=== PATIENT | male | born 1955 | race Caucasian/White ===

== ENCOUNTER 2018-06-08 14:01 | Emergency (ER) | payer SELFPAY ==
[~2018-06-08] VITALS: Ht 190.5 cm; Wt 97.5 kg
[~2018-06-08 14:01] MED LIST: ACET325 PO; GABA800 PO; INSDET100 SC; METCAR750 PO; METF500 PO; SIMV40 PO; TRAZ100 PO
== END 2018-06-08 14:30 ==
LOC: ER 14:01
DX: R60.0 Localized edema (principal); F10.129 Alcohol abuse with intoxication, unspecified; Z88.5 Allergy status to narcotic agent; Z88.8 Allergy status to other drugs, medicaments and biological substances; Z79.899 Other long term (current) drug therapy; Z79.4 Long term (current) use of insulin; F43.10 Post-traumatic stress disorder, unspecified; I50.9 Heart failure, unspecified; F17.200 Nicotine dependence, unspecified, uncomplicated
CPT/HCPCS: 99282

== ENCOUNTER 2019-03-02 17:02 | Inpatient (IN) | payer OTHER, MEDICARE ==
[~2019-03-02] VITALS: Ht 190.5 cm; Wt 88.1 kg
[~2019-03-02 17:02] MED LIST changes: -METCAR750 PO; +Robaxin-750750 MG PO
[2019-03-02 18:25] LABS: BASOPHILS ABSOLUTE AUTO 0.09 K/mm3 (0.00-0.23); BASOPHILS PERCENT AUTO 1 % (0-2); EOSINOPHILS ABSOLUTE AUTO 0.13 K/mm3 (0.00-0.68); EOSINOPHILS PERCENT AUTO 1 % (0-6); Hemoglobin 15.2 g/dL (13.5-17.5); IMMATURE GRAN ABSOLUTE AUTO 0.07 K/mm3 (0.00-0.10); IMMATURE GRAN PERCENT AUTO 1 % (0-1); LYMPHOCYTES ABSOLUTE AUTO 3.19 K/mm3 (0.84-5.20); LYMPHOCYTES PERCENT AUTO 30 % (21-46); MONOCYTES ABSOLUTE AUTO 0.93 K/mm3 (0.16-1.47); MONOCYTES PERCENT AUTO 9 % (4-13); Mean Corpuscular HGB 31.5 pg (26.0-34.0); Mean Corpuscular HGB Conc 33.8 g/dL (31.5-36.5); Mean Corpuscular Volume 93 fL (80-100); Mean Platelet Volume 9.3 fL (9.1-12.4); NEUTROPHILS ABSOLUTE AUTO 6.13 K/mm3 (1.96-9.15); NEUTROPHILS PERCENT AUTO 58 % (41-73); Platelet Count 491 K/mm3 (150-400); RDW Coefficient Variation 11.6 % (11.7-14.2); RDW Standard Deviation 39.9 fL (35.1-46.3); Red Blood Cell Count 4.82 M/mm3 (4.30-5.90); White Blood Cell Count 10.54 K/mm3 (4.00-11.30)
[2019-03-02 18:43] LABS: Alanine Aminotransfer (ALT/SGP 26 U/L (12-78); Albumin, Blood 3.2 g/dL (3.4-5.0); Albumin/Globulin Ratio 0.7 (0.8-1.8); Alk Phos 108 U/L (50-136); Anion Gap 7 mmol/L (6-16); Aspartate Aminotrans (AST/SGOT 12 U/L (12-37); Bilirubin, Total 0.2 mg/dL (0.1-1.0); Blood Urea Nitrogen 24 mg/dL (8-24); Bun/Creatinine Ratio 47.1 (12.0-20.0); CO2, Blood 29 mmol/L (21-32); Calcium, Blood 9.3 mg/dL (8.5-10.1); Chloride, Blood 92 mmol/L (98-108); Creatinine, Blood 0.51 mg/dL (0.60-1.20); Globulin, Blood 4.7 g/dL (2.2-4.0); Glomerular Filtration Rate >60 (60-); Glucose, Blood 493 mg/dL (70-99); Sodium, Blood 128 mmol/L (136-145); Total Protein, Blood 7.9 g/dL (6.4-8.2)
[2019-03-02 19:14] LABS: Glucose, Blood 462 mg/dL (70-99)
[2019-03-02] MEDS ORDERED: BUPR75 PO (21:22)
[2019-03-02] MEDS ORDERED: IBUP800 PO (21:22)
[2019-03-02] MEDS ORDERED: OMEPRAZOLE20 MG PO (21:22)
[2019-03-02] MEDS ORDERED: Norco 10-325 T1 EACH PO (23:11)
--- NOTE | 2019-03-03 12:57 | NUR ---
PT HAS BEEN A/O X 3-4, HIS SPEECH IS VERY GARBLED WITH C/O PAIN X 1 FOR WHICH TYLENOL WAS GIVEN ORDERED. PT IS VERY IMPULSVE AND HAS POOR SAFETY AWARENESS. THIS MORNING HE INSISTED ON GOING OUTSIDE TO SMOKE EVEN THOUGH HE WAS REMINDED THAT IT IS SAFEST FIR HIM TO STAY IN HIS ROOM AND REST. PT REFUSES TO USE CALL LIGHT EVEN THOUGH HE IS CAPABLE AND INSTEAD YELLS OUT FOR "NURSE" WHEN HE NEEDS SOMETHING. LEFT INDEX FINGER AND RIGHT FOOT ULCERS REMAIN NOTED IN SHIFT ASSESSMENT. ORTHO DOCTOR SAW PT AT THE BEDSIDE THIS MORNING AND STATED THAT THEY WOULD DO AN I/D OF HIS FINGER THIS AFTERNOON AND PT HAS BEEN NPO SINCE AFTER BREAKFAST. IV FLUIDS/ABO RAN ORDERED. CBG WAS ELEVATED BEFORE LUNCH, DR STEIN WAS NOTIFIED AND GAVE A VERBAL TO GO AHEAD AND GIVE THE SLIDING SCALE DOSE ORDERED. PT IS ASYMPTOMATIC OF HYPERGLYCEMIA. PT IS RESTING IN BED.
--- NOTE | 2019-03-03 16:04 | NUR ---
Spiritual care visit/advance directive education attempted. Upon receiving an admit referral for advance directive education, I visited patient. Patient stated that he had no interest in filling out an advance directive and that I could leave a form if I wanted to. I left a form for the patient. I also attempted to build rapport with patient but patient was not receptive so discussions about his life, his family and his spirituality were flat. I will continue to remain available.
--- NOTE | 2019-03-03 16:19 | NUR ---
THIS NURSE JUST NOTIFIED BY DAY SURGERY THAT PT WILL NOT HAVE PROCEDURE TONIGHT. HE CAN EAT DINNER AND THEN VE NPO AT MIDNIGHT
[2019-03-03 16:59] LABS: U Amphetamine Screen DETECTED; U Cannabinoids Screen DETECTED; U Methamphetamine Screen DETECTED
[2019-03-03 17:00] LABS: U Barbituate Screen Not Detected; U Benzodiazapine Screen Not Detected; U Buprenorphine Screen Not Detected; U Cocaine Screen Not Detected; U Methadone Screen Not Detected; U Opiates Screen DETECTED; U Oxycodone Screen Not Detected; U Phencyclidine Screen Not Detected; U Propoxyphene Screen Not Detected
--- NOTE | 2019-03-03 17:07 | NUR ---
SHIFT SUMMARY PT AXO TO SELF AND DATE THOUGH HAS BEEN VERY DROWSY SINCE THIS NURSE ASSUMED CARE AT 1300. UTOX COMPLETED, SEE LABS, PT POSITIVE FOR OPIATES, AMPHETAMINE, METHAMPHETAMINES AND CANNABINOIDS. CBG AT 1451 WAS 324, 10 UNITS OF INSULIN GIVEN PER DR STEIN. DAY SURGERY STATED TO THIS NURSE THAT OUR GOAL FOR CBG WAS BELOW 250. AT 1635 CBG WAS 230, MEDICATED PER SLIDING SCALE WITH DINNER. BED IN LOW POSITION, CALL LIGHT WITHIN REACH. PT DEMANDS TO GO OUTSIDE TO SMOKE DESPITE CESSATION EDUCATION. PT STATES THAT HE "ONLY SMOKES CIGARETTES" AND DENIES CANNABIS OR ILLICIT DRUG USE.
--- NOTE | 2019-03-04 06:11 | NUR ---
SHIFT SUMMARY: A/O X2-3. MAKES NEEDS KNOWN BY YELLING OUT "NURSE", DOES NOT USE CALL BUTTON DESPITE EXPLANATION OF IT'S USE. SPEECH IS MUMBLED AND DIFFICULT TO UNDERSTAND. CONT TO BE PAINFUL IN L INDEX FINGER. NORCO ADMINSTERED X1 TONIGHT. PT SLEPT FOR SEVERAL HOURS AFTER RECIEVING MED. HAS BEEN OUTSIDE TO SMOKE A COUPLE OF TIMES TONIGHT. PT SMELLS LIKE MARIJUANA. HAS BEEN MOSTLY COOPERATIVE. WOUND ON FOOT LEILA. PT BARES WT ON FOOT, PIVOT T/F TO WC. OCC PRODUCTIVE SOUNDING COUGH. CURRENTLY NPO IN PREPARATION FOR I&D OF L INDEX FINGER TODAY. CBG 321 AT HS. BED LOW, CALL BUTTON IN REACH.
[2019-03-04 11:49] LABS: Vancomycin, Trough 13.2 ug/mL (5.0-10.0)
--- NOTE | 2019-03-04 15:42 | NUR ---
patient in sds admission to unit started placed on lr fluids has iv fluid at tko rate patient cooperated with admission waiting for OR staff to round
--- NOTE | 2019-03-04 19:46 | NUR ---
SUMMARY PT WAS NPO @ ONSET OF SHIFT FOR I&D L INDEX FINGER. WENT OUT FOR SURG APPROX [address] FAYE GLORIA. ON ARRIVAL BACK TO ROOM @ 1730 ADA DINNER TRAY PROVIDED. NEW DRSG TO L HAND CDI @ THAT TIME. AFTER DINNER PT DEMAND TO GO OUT TO SMOKE, ATTEMPTS TO DISCOURAGE SMOKING UNSUCCESSFUL, HE WHEELED HIMSELF OUT USING L HAND. HIS FRIEND SHRUTHI CAME IN TO VISIT WHILE PT WAS OUT & WENT DOWN TO BRING HIM BACK TO ROOM AFTER APPROX 45 MIN. DRSG STILL INTACT, NOC RN WILL RE-ENFORCE. VSS. PT FRIEND STATE MANY CONCERNS R/T PT'S CONTINUING STREET DRUG USE, [employer] CONSULT PLACED.
--- NOTE | 2019-03-05 03:44 | NUR ---
PT NON COMPLIANT WITH DIETARY RESTRICTIONS. CONTINUES TO LEAVE FLOOR TO "SMOKE". IV ANTIBIOTICS INFUSING PER MAR - SEE MAR FOR DETAILS. WILL CONTINUE TO ENCOURAGE PT TO COMPLY WITH PLAN OF CARE. ISOLATION PRECAUTIONS MAINTAINED. CALL LIGHT IN REACH WHEN PT IN ROOM.
[2019-03-05 05:02] LABS: BASOPHILS ABSOLUTE AUTO 0.07 K/mm3 (0.00-0.23); BASOPHILS PERCENT AUTO 1 % (0-2); EOSINOPHILS ABSOLUTE AUTO 0.03 K/mm3 (0.00-0.68); EOSINOPHILS PERCENT AUTO 0 % (0-6); Hematocrit 41.5 % (37.0-53.0); IMMATURE GRAN ABSOLUTE AUTO 0.05 K/mm3 (0.00-0.10); IMMATURE GRAN PERCENT AUTO 1 % (0-1); LYMPHOCYTES PERCENT AUTO 20 % (21-46); MONOCYTES ABSOLUTE AUTO 0.75 K/mm3 (0.16-1.47); MONOCYTES PERCENT AUTO 7 % (4-13); Mean Corpuscular HGB 31.2 pg (26.0-34.0); Mean Corpuscular HGB Conc 33.7 g/dL (31.5-36.5); Mean Corpuscular Volume 92 fL (80-100); NEUTROPHILS ABSOLUTE AUTO 7.73 K/mm3 (1.96-9.15); NEUTROPHILS PERCENT AUTO 72 % (41-73); Platelet Count 402 K/mm3 (150-400); RDW Coefficient Variation 11.6 % (11.7-14.2); RDW Standard Deviation 39.1 fL (35.1-46.3); Red Blood Cell Count 4.49 M/mm3 (4.30-5.90); White Blood Cell Count 10.73 K/mm3 (4.00-11.30)
[2019-03-05 05:20] LABS: Anion Gap 7 mmol/L (6-16); Blood Urea Nitrogen 15 mg/dL (8-24); Bun/Creatinine Ratio 37.1 (12.0-20.0); CO2, Blood 24 mmol/L (21-32); Calcium, Blood 8.3 mg/dL (8.5-10.1); Chloride, Blood 99 mmol/L (98-108); Glomerular Filtration Rate >60 (60-); Glucose, Blood 267 mg/dL (70-99); Potassium, Blood 4.1 mmol/L (3.5-5.5); Sodium, Blood 130 mmol/L (136-145)
--- NOTE | 2019-03-05 10:41 | NUR ---
03/05/19 1041 Nataliya Pat VERIFICATIONS, AUDITS.
[2019-03-05 12:00] LABS: Vancomycin, Trough 15.8 ug/mL (5.0-10.0)
--- NOTE | 2019-03-05 17:38 | NUR ---
PATIENT IS ALERT AND ORIENTED AND COOPERATIVE WITH CARE. THE DRESSING ON HIS LEFT FINGER WAS CHANGED TODAY. ULCER ON RIGHT FOOT IS OPEN TO AIR. BLOOD SUGAR CHECKS ACHS. WAITING FOR TISSUE CULTURES TO COME BACK. PATIENT USES THE URINAL. HE GOES OUTSIDE IN HIS WHEELCHAIR TO SMOKE. WILL CONTINUE TO MONITOR.
--- NOTE | 2019-03-06 05:16 | NUR ---
Shift Summary Patient slept intermittently overnight. He left the room several times to go outside despite encouragement to stay inside, and doctor's recommendations. He has not had any food or beverage since midnight in anticipation of potential surgery.
--- NOTE | 2019-03-06 13:25 | NUR ---
BROUGHT TO [facility]IA GURNEY FROM MEDICAL FLOOR. History, Chart, Medications and Allergies reviewed before start of procedure.Patient confirms NPO status and agrees with scheduled surgery.Lungs clear T/O to Auscultation.
--- NOTE | 2019-03-06 13:34 | NUR ---
DAY SURGERY PT STABLE TRANSPORTED BY [facility] TO DAY SURGERY@ 1300. VANCOMYCIN NOT GIVEN ON FLOOR IV INFILTERATED, DAY SURGERY STARTING NEW
--- NOTE | 2019-03-06 15:37 | NUR ---
REPORT RECIEVED FROM LIZETH DOWLING RN, AT 1535. PATIENT TO BE RETURNING TO ROOM 312 S/P I&D OF LEFT INDEX FINGER. ROXANA DRESSING PLACED TO SITE, PER REPORT.
--- NOTE | 2019-03-06 16:23 | NUR ---
PT BACK FROM PACU PT TRANSPORTED FROM PACU AFTER I&D PROCEDURE OF LEFT FOREFINGER, DRESSING CLEAN DRY AND INTACT, WOUND VAC IN PLACE. PT WAS NPO UNTIL DINNER AND TOLORATED FOOD WELL.
[2019-03-06 21:19] LABS: Glucose, Blood 434 mg/dL (70-99)
--- NOTE | 2019-03-07 00:20 | NUR ---
PHYSICIAN COMMUNICATION CALLED AC/DC REWINDER PHYSICIAN AT 2154 ON 03/06 TO INFORM HER THAT THE PATIENT'S BLOOD SUGAR WAS 434 CONFIRMED BY LAB DUE TO THE CHEM BG MACHING READING BEING OVER 500. TOLD HER THAT THE PATIENT WILL BE NPO AFTER MIDNIGHT FOR A POSSIBLE PROCEDURE IN THE AM AND THAT HIS EVENING COVERAGE IS LANTUS. ELLA ORDERED 10 UNITS OF HUMALOG TO BE GIVEN AT THAT TIME ALONG WITH HIS SCHEDULED LANTUS.
--- NOTE | 2019-03-07 05:12 | NUR ---
DR ARIAS CALLED AT 2009 ON 03/06 TO NOTIFY ME THAT THE PATIENT WAS TO BE PLACED ON NPO SATUS AFTER MIDNIGHT DUE TO A POSSIBLE SURGICAL PROCEDURE IN THE MORNING.
--- NOTE | 2019-03-07 07:13 | NUR ---
SHIFT SUMMARY PATIENT WAS MOVED FROM 112 TO 113 TO REDUCE THE AMOUNT OF STIMULATION HE EXPERIENCED SO HE COULD GET BETTER REST. PATIENT DID NOT GET MUCH SLEEP OVERNIGHT. WOUND VAC PRESENT AND IN PLACE ON HIS LEFT INDEX FINGER. IV PATENT AND INFUSING. PATIENT PLACED ON NPO STATUS AFTER MIDNIGHT PER DR ARIAS'S ORDER. BED IN LOWEST POSITION WITH WHEELS LOCKED AND ALARM ON. CALL LIGHT WITHIN REACH. REPORT GIVEN TO ONCOMING RN.
[2019-03-07 11:18] LABS: Creatinine, Blood 0.44 mg/dL (0.60-1.20); Vancomycin, Trough 15.4 ug/mL (5.0-10.0)
--- NOTE | 2019-03-07 19:18 | NUR ---
SHIFT SUMMARY: NO ACUTE CHANGES TO REPORT THIS SHIFT. PT A&O; IRRITABLE; COOPERATIVE WITH CARE. MEDICATED FOR L INDEX FINGER PAIN PER EMAR. WOUND VAC TO L INDEX FINGER; PT TAKES WITH HIM IN WHEELCHAIR OUTSIDE TO SMOKE. FINGER SURGERY DELAYED UNTIL POC GLUCOSE BETTER CONTROLLED; PT EDUCATED ON BETTER MEAL CHOICES TO MAKE A DIABETIC; BETTER GLUCOSE CONTROL THROUGH DAY. FLUIDS & IV ABX CONTINUING. REPORT GIVEN TO ONCOMING RN.
--- NOTE | 2019-03-08 04:57 | NUR ---
SHIFT SUMMARY: BP ELEVATED 149/100. PT RESTING QUIETLY. HAS BEEN VOIDING FREQUENT LARGE AMOUNTS TONIGHT. URINE CLEAR, NONMALODOROUS. MOOD CONTINUES TO BE IRRITABLE WITH OCCASIONAL BOUTS OF YELLING AND SWEARING FOLLOWED BY APOLOGIES FOR BEHAVIOR. NORCO ADMINISTERED X1 TONIGHT FOR L INDEX FINGER PAIN. WOUND VAC ON AND SUCTIONING L INDEX FINGER ABSCESS. MINIMAL YELLOW/BROWN COLORED DISCHARGE OBSERVED IN TUBING. ULCER ON PLANTAR SURFACE OF R FOOT CLEANSED, PAT DRY, AND DRESSED WITH BORDERED MEPILEX. NO DRAINAGE. WOUND BED DRY AND CALLOUSED. CBG 173 AT HS. REQUESTS SNACKS OFTEN DURING THE NIGHT, WORKED TO REDIRECT PT TO CHOOSE LOWER CARB OPTIONS. SLEPT INTERMITTENTLY THROUGH THE NIGHT.
--- NOTE | 2019-03-08 14:58 | NUR ---
DR WILLIS IN TO SEE PT. NOTIFIED NURSE THAT PT WILL HAVE SURGERY ON Sunday03/10/19 AND THAT PT CAN EAT TODAY.
--- NOTE | 2019-03-08 18:00 | NUR ---
SHIFT SUMMARY PT AXO, EXTREMELY IRRITABLE FOR FIRST HALF OF SHIFT THEN WAS APOLOGETIC THE SECOND HALF OF SHIFT. MEDICATED FOR PAIN PER EMAR. THIS NURSE CALLED DR WILLIS ANSWERING SERVICE THIS MORNING AT ABOUT [address] MCHUGH. DR ARIAS CALLED AND WOUND VAC ORDERS RECIEVED. DR WILLIS CONSULTED, SEE NOTE. PT KEPT NPO FOR BREAKFAST AND LUNCH AWAITING DR WILLIS CONSULT. PT WILL NEED TO BE NPO AT MIDNIGHT ON 03/10/19 FOR AMPUTATION ON SUNDAY PER DR WILLIS. BED IN LOW POSITION, CALL LIGHT WITHIN REACH.
[2019-03-09 05:42] LABS: Albumin, Blood 2.5 g/dL (3.4-5.0); Anion Gap 6 mmol/L (6-16); Blood Urea Nitrogen 20 mg/dL (8-24); Bun/Creatinine Ratio 43.5 (12.0-20.0); CO2, Blood 27 mmol/L (21-32); Calcium, Blood 8.5 mg/dL (8.5-10.1); Chloride, Blood 100 mmol/L (98-108); Creatinine, Blood 0.46 mg/dL (0.60-1.20); Glomerular Filtration Rate >60 (60-); Glucose, Blood 217 mg/dL (70-99); Phosphorus, Blood 3.5 mg/dL (2.5-4.9); Potassium, Blood 4.4 mmol/L (3.5-5.5); Sodium, Blood 133 mmol/L (136-145)
--- NOTE | 2019-03-09 06:44 | NUR ---
ATTEMPTED PG, NOT SUCCESSFUL. WILL LET PRIMARY RN KNOW AND THERE SHOULD BE A HEAD OF STORE OPERATIONS ON DAYS THAT CAN ALSO ATTEMPT A POWER GLIDE.
--- NOTE | 2019-03-09 07:22 | NUR ---
SHIFT SUMMARY: AWAKE MUCH OF THE NIGHT. WOUND VAC IN PLACE ON L INDEX FINGER, SUCTIONING CONTINUOUSLY. DRSG TO PLANTAR SURFACE OF R FOOT C/D/I. ASKS FOR SNACKS FROM EVERYONE WHO ENTERS PT'S ROOM. CONT TO OFFER LOW CARB OPTIONS MUCH POSSIBLE. NO IV ACCESS AT THIS TIME. PT HAS NOT RECEIVED AM VANCO. MAKES NEEDS KNOWN BY BOTH USING CALL BUTTON AND YELLING OUT. LEFT 4 TIMES TO SMOKE DURING THE NOC. BED LOW, CALL BUTTON IN REACH.
--- NOTE | 2019-03-09 13:22 | NUR ---
Behavior plan reviewed behavior plan with patient. He refuses to sign. copy left in room.
[2019-03-09 13:42] LABS: U Amphetamine Screen Not Detected; U Barbituate Screen Not Detected; U Benzodiazapine Screen Not Detected; U Buprenorphine Screen Not Detected; U Cannabinoids Screen Not Detected; U Cocaine Screen Not Detected; U Methadone Screen Not Detected; U Methamphetamine Screen Not Detected; U Opiates Screen DETECTED; U Oxycodone Screen Not Detected; U Phencyclidine Screen Not Detected; U Propoxyphene Screen Not Detected
--- NOTE | 2019-03-09 18:39 | NUR ---
SHIFT SUMMARY PT AXO, IRRITABLE AND ANGRY THROUGHOUT THE DAY. PT UPSET THAT HE ISNT RECEIVING TWO TRAYS AT EACH MEAL, DIABETES EDUCATION DISCUSSED. PT THEN TOLD NURSE TO "ROLL HIM A JOINT" AND POINTED AT HIS COAT POCKET. NURSE QUESTIONED PATIENT ABOUT DRUG USE WHEN HE GOES OUTSIDE TO SMOKE. PT DENIES DRUG USE. PT DEMANDING TO GO OUTSIDE TO SMOKE VIA WHEELCHAIR X4 BEFORE NOON. NURSE SET LIMITS ON OUTSIDE PRIVILEGES R/T INTERFERRING WITH WOUND VAC CARE. PT OPPOSITIONAL TO LIMITS BEING SET. NURSING HOUSE SUPERINTENDENT, THEODORE BARRETT NOTIFIED AND BEHAVIORAL PLAN IN PLACE. DR MCHUGH NOTIFIED AND UTOX ORDERED, SEE LAB. AT 1445 PT DEMANDED TO LEAVE AMA. RISKS DISCUSSED WITH PATIENT WHO MADE A COMMENT ABOUT SELF HARM. DR MCHUGH IN ROOM SHORTLY AFTER FOR AN ASSESSMENT AT WHICH POINT PATIENT DENIED THAT STATEMENT. PT AGREES TO STAY FOR NOW. NEW IV PLACED THIS SHIFT. PT MEDICATED FOR PAIN PER EMAR. SMOKING AND DRUG CESSATION DISCUSSED. PHARMACY NOTIFIED OF IV ACCESS BEING LOST THIS MORNING AND ANTIBIOTICS RETIMED ONCE IV ACCESS REGAINED. BED IN LOW POSITION, CALL LIGHT WITHIN REACH. PATIENT VOIDED 3125 ML SO FAR THIS SHIFT.
--- NOTE | 2019-03-10 05:59 | NUR ---
SHIFT SUMMARY: A/O AT BASELINE. USING CALL BUTTON OCCASIONALLY BUT YELLS OUT AND SWEARS LOUDLY SHORTLY AFTER USING CALL LIGHT. L UPPER ARM SWELLING DUE TO IV INFILTRATION. POWERGLIDE NOW IN R UPPER ARM. PT WENT OUTSIDE X 3 TONIGHT. HAS REMAINED COMPLIANT WITH NPO AFTER MIDNIGHT GUIDELINES AT LEAST WHILE ON THE MEDICAL FLOOR UNIT. SLEPT INTERMITTENTLY THROUGH THE NIGHT. CALL BUTTON PLACED WITHIN REACH. BED LOW.
--- NOTE | 2019-03-10 12:37 | NUR ---
PATIENT IV FLUIDS AND WOUND VAC DISCONNECTED. PATIENT LEFT UNIT ON BED FOR SURGERY.
--- NOTE | 2019-03-10 13:07 | NUR ---
History, Chart, Medications and Allergies reviewed before start of procedure. Lungs clear T/O to Auscultation. Patient confirms NPO status and agrees with scheduled surgery. Pre-Op teaching done. Pt verbalizes understanding.
[2019-03-10 13:56] LABS: Vancomycin, Trough 15.1 ug/mL (5.0-10.0)
--- NOTE | 2019-03-10 15:44 | NUR ---
PATIENT RETURNED FROM DAY SURGERY. VSS. PATIENT A/O. COMPLAINTS OF PAIN PHYSICALLY. WILL MEDICATE PER EMAR.
--- NOTE | 2019-03-10 16:59 | NUR ---
SHIFT SUMMARY PT HAD L POINTER FINGER REMOVED TODAY. DRESSING INTACT. NO HEMATOMA OR BLEEDING OBSERVED. WOUND VAC REMOVED DUE TO FINGER AMPUTATION. PT OUT TO SMOKE THROUGHOUT SHIFT. PT UNINTERESTED IN EDUCATION ON SMOKING CESSATION. PT BACK TO ADA DIET. NO OTHER CHANGES IN ASSESSMENT AT THIS TIME. VSS. WILL CONTINUE TO MONITOR UNTIL TURNOVER IS COMPLETE.
--- NOTE | 2019-03-11 07:18 | NUR ---
SHIFT SUMMARY PT C/O PAIN IN L HAND AND MEDICATED PER EMAR. HE WAS ABLE TO SLEEP ON AND OFF T/O NIGHT. WENT OUTSIDE IN W/C 3-4 TIMES. ASKS FOR MULTIPLE SNACK FOODS.
--- NOTE | 2019-03-11 14:54 | NUR ---
LATE ENTRY D/C ORTHO INSTRUCTIONS. CONTACT WITH PROVIDER REGARDING D/C SPOKE WITH DR. ARIAS AND REPORTS OKAY TO D/C ON PO ANTIBX FOR ONE WEEK POST SURGERY. WOUND CARE INSTRUCTIONS TO LEAVE DRESSING CDI UNTIL F/U WITH DR. ARIAS Sunday03/14/19, NO LIFTING, NO DRIVING, NO SMOKING/DRUGS. REPORTS OKAY TO D/C PATIENT IF THESE INSTRUCTIONS FOLLOWED.
--- NOTE | 2019-03-11 14:57 | NUR ---
POST SURG SWELLING OF ARM PATIENT COMPLAINS OF PAIN IN LEFT ARM AT ELBOW WITH RADIATION UP TOWARDS SHOULDER AND DOWN TOWARDS HAND. WARM TO TOUCH, NO NUMBNESS, TINGLING REPORTED AT THIS TIME. MEASUREMENTS OF ARM AT WRIST 7 CM AROUND, AT FOREARM 13 CM AND AT ELBOW 14 CM. ARM APPEARS MORE SWOLLEN THAN DURING ASSESSMENT THIS AM. NO OBVIOUS INJURIES OBSERVED. DR. MCHUGH AND DR. ARIAS AWARE AND ULTRASOUND TO BE COMPLETED. WILL CONTINUE TO MONITOR.
--- NOTE | 2019-03-11 16:05 | NUR ---
PT OUT OF ROOM. PT OUT OF ROOM FOR EXTENDED PERIOD OF TIME. PT OVERHEAD PAGED. SECURITY CALLED. PT IN SMOKING AREA. SECURITY TO ASK PT TO RETURN TO ROOM.
--- NOTE | 2019-03-11 17:52 | NUR ---
SHIFT SUMMARY PATIENT A/O X 4. MAKES NEEDS KNOWN. LEFT FINGER DRESSING IS CDI WITH SOME DRY BLOOD DRAINAGE NOTED. THERE IS SOME SWELLING OF THE LEFT ARM NOTED FROM THE WRIST TO JUST ABOVE ELBOW WARM TO TOUCH AND PAINFUL TO PATIENT. ULTRASOUND COMPLETED AND REPORTED NO CLOTS FOUND AT THIS TIME. ARM APPEARS REDDENED AND WARM TO TOUCH AND NO CHANGES IN SIZE NOTED AT THIS TIME AT REMEASURE. PATIENT MAKES NEEDS KNOWN. ADVISED PATIENT MAY NOT LEAVE THE ROOM FOR LONGER THAN ONE HOUR AT A TIME PATIENT WAS AWAY FROM ROOM FOR AN EXTENDED PERIOD BEYOND ONE HOUR DURING SHIFT. WILL CONTINUE TO MONITOR UNTIL SHIFT CHANGE COMPLETE.
--- NOTE | 2019-03-12 16:52 | NUR ---
SHIFT SUMMARY PT AWAKE AT START OF SHIFT AND THRU OUT MOST OF THE DAY. OUT TO SMOKE PRIOR TO DAY SHIFT REPORT AND DIDN'T RETURN UNTIL ABX WAS OVERDUE. INSTRUCTED PT TO REMAIN IN RM FOR IV ABX AND EDU PT ON DR BLEVINS ORDERS THAT PT NOT BE SMOKING. PT THEN REMAINED IN RM FOR SEVERAL HOURS, BEFORE GOING OUT AGAIN. PT HAD SEVERAL FRIENDS IN AND OUT OF RM TODAY. L ARM SWELLING NOTED AT START OF SHIFT; ASSISTED PT IN ELEVATING ON 2 PILLOWS. ENCOURAGED PT TO KEEP IT ELEVATED WHEN AT REST. DR MCHUGH IN EARLY TO SEE PT AND GAVE ORDERS TO CALL DR COMBS TO COME AND ASSESS PT'S ARM SWELLING. DR COMBS NOTIFIED. REVIEWED US RESULTS; SEE CHART, AND THEN REPORTED THAT HE WOULD SEE PT TODAY. SOME SWELLING CAN BE NORMAL D/T PROCEDURE DONE ON LH. PT WAS HOPING TO D/C TODAY, BUT WAITING FOR ORTHO TO CLEAR PT FOR D/C. PT BECAME DEMANDING AND RUDE AT TIMES TODAY, BUT THEN APPOLOGIZED AND IMPROVED SOME. OUT SIDE A FEW TIMES BETWEEN IV ABX, BUT RETURNED MUCH SOONER THAN YESTERDAY OR LAST NIGHT. DIABETIC FOOT ULCER ON BOTTOM OF R FOOT. PT REPORTED THAT HE DOES NOT KNOW HOW HE GOT IT. ATTEMPTED TO EDU PT ON DIABETIC FOOT CARE, BUT PT IS DIFFICULT TO EDUCATE; VERY NONCOMPLIANT WITH DIET, INSULIN, AND CARE. CALL LT IN REACH. ABLE TO MAKE NEEDS KNOWN.
--- NOTE | 2019-03-13 04:28 | NUR ---
SHIFT SUMMARY ADMIT FOR FINGER ABSCESS, AMPUTATION PERFORMED. DR ARIAS ROUNDED LAST NIGHT AND CHANGED DRESSING, ASSESSED HEALING. HE WOULD LIKE THE PT TO GET A SLING AND FOLLOW UP AT HIS OFFICE OUTPATIENT SUNDAY OR SUNDAY. CONTACT PRECAUTIONS MRSA HX - PER PT. HX: SMOKING, DRUG USE. PLAN IS FOR DC (POSSIBLY TODAY) AND HOPEFUL FOR ENROLLMENT IN THE [facility]. PT'S [place] HELPS HIM AT HOME. FULL CODE. RA.
[2019-03-13 05:48] LABS: Vancomycin, Trough 14.8 ug/mL (5.0-10.0)
[2019-03-13] MEDS ORDERED: BASAGLAR K100 UNIT/1 SC (09:07)
[2019-03-13] MEDS ORDERED: Humalog100 UNIT/3 SC (09:18)
[2019-03-13] MEDS ORDERED: Vsl#3 Capsule1 EACH PO (09:21)
[2019-03-13] MEDS ORDERED: BACTRIM DS TAB1 EACH PO (09:22)
--- NOTE | 2019-03-13 11:15 | NUR ---
DISCHARGE INSTRUCTIONS REVIEWED WITH PT. POWERGLIDE DC'D INTACT. DRESSING TO LEFT HAND C/D/I, DR ARIAS IN TO SEE PT PRIOR TO DISCHARGE AND TORSTEN WRAP APPLIED TO FORARM DUE TO PAIN. EXTRA DRESSING SUPPLES GIVEN TO PT. APPT MADE WITH DR ARIAS FOR TOMORROW AM, BREWER HELPER WORKING ON GETTING [facility] TO APPT WELL PT TALKING WITH [facility] FOR TRANSPORTATION. F/U APPT MADE WITH PCP AND PT TO CALL DR RAIN FOR PODIATRY APPT HIS OFFICE IS CLOSED. PT REPORTS HE USES INSULIN AT HOME AND AWARE HOW TO ADMINISTER AND CHECK BLOOD GLCUOSE, SLIDING SCALE GIVEN. MEDS FAXED TO [place] AND ARE READY FOR CREAM BUYER. [employer] [facility] TO STOP BY [facility] FOR MEDS AND THEN HOME. HARD SCRIPT FOR PAIN MEDS AND W/C GIVEN TO PT. INSTRUCTIONS TO NOT DRIVE, ELEVATE ARM, NO SMOKING AND NO DRUGS GIVEN TO PT. SLING APPLIED TO LEFT ARM PRIOR TO DISCHARGE. PT DISCHARGED HOME AT 1112 VIA [employer] [facility] W/C TRANSPORT AT 1112.
== END 2019-03-13 11:11 | disposition home health service (06) | DRG 580 ==
LOC: ER 17:02 → MEDS 17:03
PROVIDERS: Family Medicine; Hospitalist; Orthopaedic Surgery; Pharmacist; Physician Assistant; ADMIT Hospitalist
PROC: 0JDK0ZZ Extraction of Left Hand Subcutaneous Tissue and Fascia, Open Approach (ICD-10-PCS; principal; 2019-03-04 15:30)
PROC: 0JDK0ZZ Extraction of Left Hand Subcutaneous Tissue and Fascia, Open Approach (ICD-10-PCS; 2019-03-06)
PROC: 0X6P0Z0 Detachment at Left Index Finger, Complete, Open Approach (ICD-10-PCS; 2019-03-10)
DX: L02.512 Cutaneous abscess of left hand (principal); M02.30 Reiter's disease, unspecified site; M00.9 Pyogenic arthritis, unspecified; E87.1 Hypo-osmolality and hyponatremia; R45.851 Suicidal ideations; L97.412 Non-pressure chronic ulcer of right heel and midfoot with fat layer exposed; B19.20 Unspecified viral hepatitis C without hepatic coma; F43.10 Post-traumatic stress disorder, unspecified; Z79.4 Long term (current) use of insulin; E11.65 Type 2 diabetes mellitus with hyperglycemia; F15.10 Other stimulant abuse, uncomplicated; E11.621 Type 2 diabetes mellitus with foot ulcer; L03.012 Cellulitis of left finger; F32.9 Major depressive disorder, single episode, unspecified; K21.9 Gastro-esophageal reflux disease without esophagitis; F60.9 Personality disorder, unspecified
CPT/HCPCS: 10160; 36415; 73140; 73620; 80048; 80053; 80069; 80202; 82565; 82947; 83605; 85025; 85730; 87040; 87070; 87071; 87075; 87077; 87147; 87186; 87205; 88305; 88311; 93005; 93010; 93971; 96361-59; 96365-59; 96366-59; 96374; 96375; 96376; 99284-25; A9270; A9270-GY; G0378; J0171; J0330; J0696; J1100; J1815; J2250; J2370; J2405; J2704; J2710; J3010; J3370; J7030; J7050; J7120

== ENCOUNTER 2019-03-27 13:36 | Emergency (ER) | payer OTHER ==
[~2019-03-27] VITALS: Ht 190.5 cm; Wt 99.8 kg
[~2019-03-27 13:36] MED LIST changes: +BACTRIM DS TAB1 EACH PO; +BASAGLAR K100 UNIT/1 SC; +BUPR75 PO; +Humalog100 UNIT/3 SC; +IBUP800 PO; +Norco 10-325 T1 EACH PO; +OMEPRAZOLE20 MG PO; +Vsl#3 Capsule1 EACH PO
[2019-03-27 15:51] LABS: BASOPHILS ABSOLUTE AUTO 0.04 K/mm3 (0.00-0.23); BASOPHILS PERCENT AUTO 1 % (0-2); EOSINOPHILS ABSOLUTE AUTO 0.18 K/mm3 (0.00-0.68); EOSINOPHILS PERCENT AUTO 2 % (0-6); Hematocrit 40.4 % (37.0-53.0); Hemoglobin 13.4 g/dL (13.5-17.5); IMMATURE GRAN ABSOLUTE AUTO 0.02 K/mm3 (0.00-0.10); IMMATURE GRAN PERCENT AUTO 0 % (0-1); LYMPHOCYTES ABSOLUTE AUTO 1.53 K/mm3 (0.84-5.20); LYMPHOCYTES PERCENT AUTO 19 % (21-46); MONOCYTES ABSOLUTE AUTO 0.65 K/mm3 (0.16-1.47); MONOCYTES PERCENT AUTO 8 % (4-13); Mean Corpuscular HGB 31.6 pg (26.0-34.0); Mean Corpuscular HGB Conc 33.2 g/dL (31.5-36.5); Mean Corpuscular Volume 95 fL (80-100); Mean Platelet Volume 9.2 fL (9.1-12.4); NEUTROPHILS ABSOLUTE AUTO 5.62 K/mm3 (1.96-9.15); NEUTROPHILS PERCENT AUTO 70 % (41-73); Platelet Count 252 K/mm3 (150-400); RDW Coefficient Variation 12.7 % (11.7-14.2); RDW Standard Deviation 44.2 fL (35.1-46.3); Red Blood Cell Count 4.24 M/mm3 (4.30-5.90); White Blood Cell Count 8.04 K/mm3 (4.00-11.30)
[2019-03-27 16:14] LABS: Alanine Aminotransfer (ALT/SGP 23 U/L (12-78); Albumin, Blood 2.9 g/dL (3.4-5.0); Albumin/Globulin Ratio 0.7 (0.8-1.8); Alk Phos 68 U/L (50-136); Anion Gap 8 mmol/L (6-16); Aspartate Aminotrans (AST/SGOT 18 U/L (12-37); Bilirubin, Total 0.2 mg/dL (0.1-1.0); Blood Urea Nitrogen 17 mg/dL (8-24); Bun/Creatinine Ratio 33.3 (12.0-20.0); CO2, Blood 26 mmol/L (21-32); Calcium, Blood 8.9 mg/dL (8.5-10.1); Chloride, Blood 101 mmol/L (98-108); Creatinine, Blood 0.51 mg/dL (0.60-1.20); Globulin, Blood 3.9 g/dL (2.2-4.0); Glomerular Filtration Rate >60 (60-); Glucose, Blood 231 mg/dL (70-99); Potassium, Blood 3.9 mmol/L (3.5-5.5); Sodium, Blood 135 mmol/L (136-145); Total Protein, Blood 6.8 g/dL (6.4-8.2)
[2019-03-27] MEDS ORDERED: Dyazide 37.5-21 EACH PO (16:46)
== END 2019-03-27 16:56 | disposition home or self-care (01) ==
LOC: ER 13:36
PROVIDERS: Physician Assistant
DX: R60.0 Localized edema (principal); E11.621 Type 2 diabetes mellitus with foot ulcer; L97.519 Non-pressure chronic ulcer of other part of right foot with unspecified severity; F32.9 Major depressive disorder, single episode, unspecified; F43.10 Post-traumatic stress disorder, unspecified; F17.200 Nicotine dependence, unspecified, uncomplicated; Z86.19 Personal history of other infectious and parasitic diseases
CPT/HCPCS: 36415; 71046; 80053; 83880; 85025; 93005; 93010; 99284-25

== ENCOUNTER 2019-09-24 20:40 | Inpatient (IN) | payer OTHER ==
[~2019-09-24] VITALS: Ht 190.5 cm; Wt 109.3 kg
[~2019-09-24 20:40] MED LIST changes: +Dyazide 37.5-21 EACH PO; -Humalog100 UNIT/3 SC; +NOVOLOG FL100 UNIT/3 SC
[2019-09-24 21:45] LABS: BASOPHILS ABSOLUTE AUTO 0.03 K/mm3 (0.00-0.23); BASOPHILS PERCENT AUTO 0 % (0-2); EOSINOPHILS ABSOLUTE AUTO 0.02 K/mm3 (0.00-0.68); EOSINOPHILS PERCENT AUTO 0 % (0-6); Hematocrit 46.2 % (37.0-53.0); IMMATURE GRAN ABSOLUTE AUTO 0.03 K/mm3 (0.00-0.10); IMMATURE GRAN PERCENT AUTO 0 % (0-1); LYMPHOCYTES ABSOLUTE AUTO 1.12 K/mm3 (0.84-5.20); LYMPHOCYTES PERCENT AUTO 12 % (21-46); MONOCYTES ABSOLUTE AUTO 0.61 K/mm3 (0.16-1.47); MONOCYTES PERCENT AUTO 7 % (4-13); Mean Corpuscular HGB 31.4 pg (26.0-34.0); Mean Corpuscular HGB Conc 32.5 g/dL (31.5-36.5); Mean Corpuscular Volume 97 fL (80-100); Mean Platelet Volume 9.6 fL (9.1-12.4); NEUTROPHILS ABSOLUTE AUTO 7.54 K/mm3 (1.96-9.15); NEUTROPHILS PERCENT AUTO 81 % (41-73); Platelet Count 279 K/mm3 (150-400); RDW Coefficient Variation 12.3 % (11.7-14.2); RDW Standard Deviation 44.3 fL (35.1-46.3); Red Blood Cell Count 4.78 M/mm3 (4.30-5.90); White Blood Cell Count 9.35 K/mm3 (4.00-11.30)
[2019-09-24 22:05] LABS: Alanine Aminotransfer (ALT/SGP 57 U/L (12-78); Albumin, Blood 2.7 g/dL (3.4-5.0); Albumin/Globulin Ratio 0.8 (0.8-1.8); Alk Phos 74 U/L (50-136); Anion Gap 8 mmol/L (6-16); Aspartate Aminotrans (AST/SGOT 32 U/L (12-37); Bilirubin, Total 0.5 mg/dL (0.1-1.0); Blood Urea Nitrogen 16 mg/dL (8-24); Bun/Creatinine Ratio 27.5 (12.0-20.0); CO2, Blood 27 mmol/L (21-32); Calcium, Blood 8.5 mg/dL (8.5-10.1); Chloride, Blood 97 mmol/L (98-108); Creatinine, Blood 0.58 mg/dL (0.60-1.20); Globulin, Blood 3.5 g/dL (2.2-4.0); Glomerular Filtration Rate >60 (60-); Glucose, Blood 453 mg/dL (70-99); Potassium, Blood 4.9 mmol/L (3.5-5.5); Sodium, Blood 132 mmol/L (136-145); Total Protein, Blood 6.2 g/dL (6.4-8.2); Troponin I 0.019 ng/mL (0.000-0.040)
[2019-09-24 23:15] LABS: Source, Urine Clean Catch
[2019-09-24 23:19] LABS: Magnesium, Blood 1.8 mg/dL (1.6-2.4)
[2019-09-24 23:24] LABS: Appearance, Urine Clear (Clear); Bilirubin, Urine Neg (Neg); Blood, Urine 1+ (Neg); Color, Urine Yellow (P-Yellow); Glucose Qualitative, Urine 4+ (Neg); Ketones, Urine 1+ (Neg); Leukocyte Esterase, Urine Neg (Neg); Nitrite, Urine Neg (Neg); Protein, Urine 3+ (Neg); Urobilinogen, Urine NORM (Normal)
[2019-09-24 23:25] LABS: Bacteria Not Seen /hpf; Red Blood Cells, Urine 0-2 /hpf (0-2); Squamous Epithelial Cells Not Seen /hpf (Few); White Blood Cells, Urine Not Seen /hpf (0-5)
[2019-09-24 23:28] LABS: U Amphetamine Screen DETECTED; U Barbituate Screen Not Detected; U Benzodiazapine Screen Not Detected; U Buprenorphine Screen Not Detected; U Cannabinoids Screen Not Detected; U Cocaine Screen Not Detected; U Methadone Screen Not Detected; U Methamphetamine Screen DETECTED; U Opiates Screen DETECTED; U Oxycodone Screen DETECTED; U Phencyclidine Screen Not Detected; U Propoxyphene Screen Not Detected
[2019-09-24] MEDS ORDERED: IBUP800 PO (23:54)
[2019-09-24] MEDS ORDERED: ZINC220 PO (23:56)
[2019-09-25] MEDS ORDERED: C-500500 MG PO (01:41)
[2019-09-25] MEDS ORDERED: CAMPHOR TP (01:43)
[2019-09-25 05:28] LABS: BASOPHILS ABSOLUTE AUTO 0.04 K/mm3 (0.00-0.23); BASOPHILS PERCENT AUTO 0 % (0-2); EOSINOPHILS ABSOLUTE AUTO 0.02 K/mm3 (0.00-0.68); EOSINOPHILS PERCENT AUTO 0 % (0-6); Hematocrit 46.8 % (37.0-53.0); IMMATURE GRAN ABSOLUTE AUTO 0.02 K/mm3 (0.00-0.10); IMMATURE GRAN PERCENT AUTO 0 % (0-1); LYMPHOCYTES ABSOLUTE AUTO 1.23 K/mm3 (0.84-5.20); LYMPHOCYTES PERCENT AUTO 12 % (21-46); MONOCYTES ABSOLUTE AUTO 0.78 K/mm3 (0.16-1.47); MONOCYTES PERCENT AUTO 8 % (4-13); Mean Corpuscular HGB 31.6 pg (26.0-34.0); Mean Corpuscular HGB Conc 32.1 g/dL (31.5-36.5); Mean Corpuscular Volume 99 fL (80-100); Mean Platelet Volume 9.6 fL (9.1-12.4); NEUTROPHILS ABSOLUTE AUTO 8.16 K/mm3 (1.96-9.15); NEUTROPHILS PERCENT AUTO 80 % (41-73); Platelet Count 250 K/mm3 (150-400); RDW Coefficient Variation 12.3 % (11.7-14.2); RDW Standard Deviation 44.6 fL (35.1-46.3); Red Blood Cell Count 4.75 M/mm3 (4.30-5.90); White Blood Cell Count 10.25 K/mm3 (4.00-11.30)
[2019-09-25 05:43] LABS: International Normalized Ratio 1.03
[2019-09-25 05:59] LABS: Alanine Aminotransfer (ALT/SGP 50 U/L (12-78); Albumin, Blood 2.5 g/dL (3.4-5.0); Albumin/Globulin Ratio 0.7 (0.8-1.8); Alk Phos 74 U/L (50-136); Anion Gap 6 mmol/L (6-16); Aspartate Aminotrans (AST/SGOT 27 U/L (12-37); Bilirubin, Total 0.3 mg/dL (0.1-1.0); Blood Urea Nitrogen 16 mg/dL (8-24); Bun/Creatinine Ratio 23.5 (12.0-20.0); CO2, Blood 28 mmol/L (21-32); Calcium, Blood 8.1 mg/dL (8.5-10.1); Chloride, Blood 101 mmol/L (98-108); Creatinine, Blood 0.68 mg/dL (0.60-1.20); Globulin, Blood 3.6 g/dL (2.2-4.0); Glomerular Filtration Rate >60 (60-); Glucose, Blood 347 mg/dL (70-99); Potassium, Blood 4.5 mmol/L (3.5-5.5); Sodium, Blood 135 mmol/L (136-145); Total Protein, Blood 6.1 g/dL (6.4-8.2)
--- NOTE | 2019-09-25 06:54 | NUR ---
ASSUMED CARE OF PATIENT MID SHIFT. PATIENT WITH GARLED SPEECH STATING THAT HE WANTS TO BE LET OUT TO SMOKE. HE TRIES TO GET OUT OF BED ALTHOUGH HE IS WEAK AND UNSTEADY ON HIS FEET. PATIENT IS AGITATED WHEN STAFF TRIES TO KEEP HIM IN BED. RECEIVED ORDERS FOR LORAZAPAM WHICH CALMS THE PATIENT DOWN. PATIENT WITH CHRONIC FOOT ULCER WHICH ORTHO IS CONSULTED FOR. NO COMPLAINTS OF PAIN BUT PATIENT IS VISIBLY SHORT OF BREATH AT TIMES. 2L OF OXYGEN APPLIED. SATS IN THE MID 90S. EDUCATED THOROUGHLY OF USE OF CALL LIGHT FOR ANY NEEDS. BED LOWERED TO LOWEST POSITION, CALL LIGHT WITHIN REACH. WILL CONTINUE TO MONITOR UNTIL END OF SHIFT.
--- NOTE | 2019-09-25 10:21 | NUR ---
PT REMAINS FREQUENTLY COMBATIVE, IS VERY CONFUSED. ATIVAN HAS A MILD AFFECT FOR CALMING HIM. PT WAKES SCREAMS "I HAVE TO PEE" AND "I CANT BREATHE". HITS AND KICKS AT STAFF. PT HAS BEEN REPOSITIONED. VSS. DR CORTES IS AWARE HAS CHANGED ATIVAN DOSING, WILL CONTINUE TO MONITOR
--- NOTE | 2019-09-25 11:36 | NUR ---
Echocardiogram using 0.60ml of Definity contrats performed.
--- NOTE | 2019-09-25 18:14 | NUR ---
SHIFT NOTE PT HAS BEEN INTERMITTENLY COMBATIVE T/O THE DAY. AMS VARIES. PT SCREAMS OUT FOR MOST OF THE DAY OR IS SLEEPING. DR CORTES HAS BEEN CONSULTED NUMEROUS TIMES T/O THE DAY. PT WAS HYPERTENSIVE AT THE END OF SHIFT AFTER WAKING UP, ALSO DIAPHORETIC. DR CORTES WAS CONSULTED AND CLONIDINE WAS ADDED TO PT LIST WHICH WAS ADMINISTERED. PT HAS BEEN MEDCIATED T/O THE DAY WITH ATIVAN WHICH HAS A VARYING EFFECT ON HIS COMBATIVENESS. POWER GLIDE WAS PLACED TODAY WHICH IS PATENT AND FLUSHING. CONDOM CATH WAS PLACED WHICH IS DRAINING WELL TO GRAVITY.
--- NOTE | 2019-09-25 20:30 | NUR ---
SPO2 CONSISTANTLY DROPPING TO 85% ON 4L NC. PT HAS COARSE UPPER RESP SOUNDS AND WEAK COUGH. RT NT SUCTIONED PT AND GOT OUT MOD AMT OF THICK YELLOW SPUTUM. PT TOLERATED WELL AFTER RECEIVING ATIVAN. AFTER NT SUCTION SPO2 IN THE 90'S AND PT IS RESTING MORE COMFORTABLEY. LS DIM T/O NOW. CONTINUOUS OXIMETERY ON.
--- NOTE | 2019-09-25 21:12 | NUR ---
PT IS HYPERTENSIVE. UNABLE TO GIVE PO METOPROLOL DUE TO MENTATION. CALLED LÁZARO KIMBALL NP WHO ORDERED PRN LABETOLOL.
--- NOTE | 2019-09-25 22:37 | NUR ---
PT RESTING QUIETLY IN BED NOW. RECEIVED TOTAL OF 4MG OF ATIVAN. CONTINUOUS OXIMETRY ON READING 97% ON 5L HFNC. BP IMPROVED AFTER LABETOLOL. NO SIGN OF DISTRESS.
[2019-09-26 05:09] LABS: BASOPHILS ABSOLUTE AUTO 0.04 K/mm3 (0.00-0.23); BASOPHILS PERCENT AUTO 0 % (0-2); EOSINOPHILS ABSOLUTE AUTO 0.02 K/mm3 (0.00-0.68); EOSINOPHILS PERCENT AUTO 0 % (0-6); Hematocrit 52.4 % (37.0-53.0); Hemoglobin 16.5 g/dL (13.5-17.5); IMMATURE GRAN ABSOLUTE AUTO 0.05 K/mm3 (0.00-0.10); IMMATURE GRAN PERCENT AUTO 0 % (0-1); LYMPHOCYTES ABSOLUTE AUTO 1.39 K/mm3 (0.84-5.20); LYMPHOCYTES PERCENT AUTO 9 % (21-46); MONOCYTES ABSOLUTE AUTO 1.15 K/mm3 (0.16-1.47); MONOCYTES PERCENT AUTO 7 % (4-13); Mean Corpuscular HGB 31.3 pg (26.0-34.0); Mean Corpuscular HGB Conc 31.5 g/dL (31.5-36.5); Mean Corpuscular Volume 99 fL (80-100); Mean Platelet Volume 9.5 fL (9.1-12.4); NEUTROPHILS ABSOLUTE AUTO 13.78 K/mm3 (1.96-9.15); NEUTROPHILS PERCENT AUTO 84 % (41-73); Platelet Count 320 K/mm3 (150-400); RDW Coefficient Variation 12.6 % (11.7-14.2); RDW Standard Deviation 46.6 fL (35.1-46.3); Red Blood Cell Count 5.27 M/mm3 (4.30-5.90); White Blood Cell Count 16.43 K/mm3 (4.00-11.30)
[2019-09-26 05:37] LABS: Anion Gap 3 mmol/L (6-16); Blood Urea Nitrogen 21 mg/dL (8-24); Bun/Creatinine Ratio 31.1 (12.0-20.0); CO2, Blood 37 mmol/L (21-32); Calcium, Blood 8.3 mg/dL (8.5-10.1); Chloride, Blood 100 mmol/L (98-108); Creatinine, Blood 0.68 mg/dL (0.60-1.20); Glomerular Filtration Rate >60 (60-); Glucose, Blood 190 mg/dL (70-99); Magnesium, Blood 2.1 mg/dL (1.6-2.4); Phosphorus, Blood 4.2 mg/dL (2.5-4.9); Sodium, Blood 140 mmol/L (136-145)
--- NOTE | 2019-09-26 05:56 | NUR ---
SUMMARY PT RESTING IN BED. WHEN PT IS AWAKE HE IS CONSTANTLY YELLING OUT "HELP". HE YELLS SO MUCH THAT HIS SPO2 WILL DROP INTO THE LOW 80'S. HE ALSO GETS COARSE UPPER AIRWAY SOUNDS WHEN AGITATED. NT SUCTIONED 3X DURING THE NIGHT AND GOT MOD AMT OF THICK YELLOW SPUTUM OUT. PT HAS A WEAK COUGH RESPONSE AND UNABLE TO GET SPUTUM OUT ON HIS OWN. AFTER NT SUCTION SPO2 GOES UP TO 97%. ON CONTINUOUS OXIMETRY. PT ALSO BECOMES HYPERTENSIVE. 2 DOSES OF IV LABETOLOL GIVEN DURING THE NIGHT. ATIVAN GIVEN TO GET PT TO RELAX AND BREATHING IMPROVES. NO OTHER CHANGES DURING THE NIGHT.
--- NOTE | 2019-09-26 10:41 | NUR ---
PT ARRIVAL: PT ARRIVED TO ROOM AGONAL BREATHING AND BEING BAGGED PER RT. 1047: PT URGENTLY INTUBATED AT THIS TIME AFTER GIVING VERSED 5MG AND PROOP 50MCG PER IVP PER JUN SMITH. PT INTUBATED WITHOUT DIFFICULTY, HOWEVER, OBTAINING SPO2 READING HAS PROVED TO BE QUITE DIFFICULT WITH SEVERAL DIFFERENT SITES AND TYPES OF PROBES USED. VENT SETTINGS:14/500/50/100%. INTUBATED WITH 8.0 ETT/24 @ THE LIP. POSITIVE BREATH SOUNDS IN ALL 4 LUNG FEILDS PER RT, WITH CAPNOSTAT COLOR CHANGE SEEN. WILL DO F/U XRAY. LUNGS WITH COARSENESS HEARD IN THE BILATERAL BASES, WITH INS/EXP WHEEZES HEARD T/O BILATERALLY. PT HAS MODERATE AMT OF WHITE SPUTUM SX'D PER ETT. WILL SEND OFF SPUTUM SPECIMEN. HR REGULAR, SR/ST 90-100'S. 1+ HARD EDEMA TO BILATERAL LE'S. 1L NS BOLUS INFUSING POST INTUBATION FOR HYPOTENSION, POST SEDATION MEDS BEING GIVEN. PRECEDEX STATED AT THIS TIME FOR SEDATION. ABS SOFT/ROUND/NO GRIMACE WITH PALPATION. BT'S HYPOACTIVE X4 QUADS. PT HAS BEEN NPO FOR SOMNOLENCE IN PCU. PT HAS MEPILEX PRESSENT TO THE RT PLANTER ASPECT THAT BEING ADDRESSED A DIABETIC FOOT ULCER. PT HAS CONDOM CATH IN PLACE AT THIS TIME DRAINING, CLEAR/YELLOW URINE.
--- NOTE | 2019-09-26 10:55 | NUR ---
UPDATE: OG TUBE PLACED AT THIS TIME AND PLACED ON LIS SX. CXR DONE TO CONFIRM ETT/OGT PLACEMENT.
--- NOTE | 2019-09-26 11:07 | NUR ---
RAPID RESPONSE CALLED PT IS MINIMALLY RESPONSIVE TO PAINFUL STIMULI, DIAPHORETIC, WITH RAPID RESPIRATIONS. HTN NOTED ON THE MONITOR. SPO2 80s ON 5L O2, RT IS CALLED TO ROOM. FAINT PULSES NOTED AT RADIAL. REMAINS ST ON TELEMETRY. SHALLOW RESPIRATIONS, WITH DIMENISHED LUNG SOUNDS, RT AGREES THAT PT DOES NOT APPEAR TO BE MOVING MUCH AIR. DR CORTES AND ICU TOOL COORDINATOR TO ROOM DECISION IS MADE TO TRANSDER PT TO ICU. PT IS TRANSFERED TO ICU [address] ICU STAFF ARE AWAITING INTUBATION. PT TRANSFERED WITH ALL BELONGINGS TO ICU, NO INFUSIONS RUNNING AT THIS TIME. FREDERICK WILHELM ASSUMES PT CARE.
--- NOTE | 2019-09-26 11:47 | NUR ---
BOLUS DONE. BP'S IMPROVED WITH MAPS >65. LR STARTED AT 100ML/HR PER ORDERS.
[2019-09-26 12:22] LABS: PCO2 Arterial 51.9 mmHg (35-45); PO2 Arterial 56.5 mmHg (80-100); pH Blood Arterial 7.43 (7.35-7.45)
[2019-09-26 13:16] LABS: Source, Urine Catheter
[2019-09-26 13:19] LABS: Bilirubin, Urine Neg (Neg); Blood, Urine Neg (Neg); Glucose Qualitative, Urine Neg (Neg); Ketones, Urine Neg (Neg); Leukocyte Esterase, Urine Neg (Neg); Nitrite, Urine Neg (Neg); Protein, Urine Neg (Neg); Specific Gravity, Urine 1.015 (1.003-1.022); Urobilinogen, Urine NORM (Normal)
[2019-09-26 13:26] LABS: Appearance, Urine Clear (Clear); Color, Urine Pale Yellow (P-Yellow)
--- NOTE | 2019-09-26 14:00 | NUR ---
PT UPDATE: -CXR DONE AND CONFIRMED ETT/OGT PLACEMENT WITH DR KEEN. -LOZA CATH PLACED FOR RETENTION AND ACCURATE I+O'S AND UA SENT TO LAB. -POWERGLIDE STARTED IN THE LT UPPER ARM THE OTHER PIV IN THE RT HAND WAS INFILTRATED UPON ARRIVAL TO THE ICU. PT HAS LR @ 100ML/HR INFUSING AT THIS TIME.
--- NOTE | 2019-09-26 18:30 | NUR ---
SHIFT SUMMARY: PT REMAINS INTUBATED AND SEDATED WITH TITTRATED PRECEDEX, CURRENTLY @ 0.7MCG/KG/MIN, PT'S BP DOES NOT TOLERATE PROPOFOL AT THIS TIME. PT HAS REC'DE 3 LITERS OF NS THIS SHIFT, 3 BOTTLES OF ALBUMIN, LR @ 200ML/HR, AND A BANANA BAG IS CURRENTLY INFUSING. LUNGS ARE COARSE IN THE BILATERAL BASES W/ SP02 MID-UPPER 90% RANGE ON VENT SETTINGS: AC-14, TV-500, P-7.5, FI02-65%. ABD SOFT/ROUND/NO-GRIMACE W/PALPATION. BT'S HYPOACTIVE X 4 QUADS. PT INCONT OF LARGE/SOFT/BROWN BM THIS SHIFT. [facility] CATH DRAINED 1250ML OF CLR/KOMAL URINE. SKIN ON LE'S ARE DRY/WRINKLED/LEATHERY BILATERALLY. MEPILEX TO RT PLANTER ASPECT OF FOOT WHICH PT'S SISTER STATES HAS BEEN THERE "FOR MONTHS." -FULL CODE -CBG'S Q6HR
--- NOTE | 2019-09-26 18:58 | NUR ---
reponded to rapid response this morning. pt has cell phone and wallet and clothing. looked for contact numbers. pt wallet has a few cards and some felix advised nursing to lock it up. cell medhat locked but had messages so looked on facebook his sister was on there called and left her a message.
--- NOTE | 2019-09-26 19:09 | NUR ---
follow up pt sister rosa pts phone and pt nurse answered contact made with pt sisiter and brother.
--- NOTE | 2019-09-26 19:31 | NUR ---
REPORTED OFF TO [facility] WHOM IS ASSUMING CARE OF THIS PT. PT CURRENTLY REC'ING [address] NS[address] DR KEEN AT THE BEDSIDE TO PLACE CENTRAL LINE IN THE EVENT THAT PT BECOMES HYPOTENSIVE AGAIN AFTER THIS BOLUS. PT HAS BEEN FLD RESPONSIVE T/O SHIFT. BP'S IMPROVE AND MAINTAIN WHILE BEING BOLUSED, THEN SLOWLY TREND DOWN AFTER BOLUS IS COMPLETE.
--- NOTE | 2019-09-26 19:46 | NUR ---
CENTRAL LINE PLACEMENT PROVIDER PLACED CENTRAL LINE DUE TO CONTINUED HYPOTENSION DESPITE FLUID BOLUSES. CHOCO KIMBROUGH ASSISTED PROVIDER WITH CENTRAL LINE PLACEMENT.
--- NOTE | 2019-09-27 01:26 | NUR ---
09/26/191899 ASSUMING CARE OF PATIENT PATIENT RECIEVING FOURTH LITER OF IV FLUIDS. BP STILL MARGINAL. ETT SECURED. DISCUSSED VENTILATOR SETTINGS WITH OFFGOING RN. TWO MIDLINE CATHERTERS CURRENTLY INFUSING. COMPATABILITIES CONFIRMED. LOZA CATHER IN PLACE AND PATENT. OGT TO SUCTION AND DRAINING. SIDE RAILS UP FOR SAFETY. RESTRAINTS IN PLACE. CIRCULATION INTACT.
[2019-09-27 03:29] LABS: BASOPHILS ABSOLUTE AUTO 0.05 K/mm3 (0.00-0.23); BASOPHILS PERCENT AUTO 0 % (0-2); EOSINOPHILS ABSOLUTE AUTO 0.01 K/mm3 (0.00-0.68); EOSINOPHILS PERCENT AUTO 0 % (0-6); Hematocrit 44.8 % (37.0-53.0); Hemoglobin 14.2 g/dL (13.5-17.5); IMMATURE GRAN ABSOLUTE AUTO 0.04 K/mm3 (0.00-0.10); IMMATURE GRAN PERCENT AUTO 0 % (0-1); LYMPHOCYTES ABSOLUTE AUTO 1.78 K/mm3 (0.84-5.20); LYMPHOCYTES PERCENT AUTO 11 % (21-46); MONOCYTES ABSOLUTE AUTO 0.72 K/mm3 (0.16-1.47); MONOCYTES PERCENT AUTO 5 % (4-13); Mean Corpuscular HGB 31.8 pg (26.0-34.0); Mean Corpuscular HGB Conc 31.7 g/dL (31.5-36.5); Mean Corpuscular Volume 100 fL (80-100); Mean Platelet Volume 9.5 fL (9.1-12.4); NEUTROPHILS ABSOLUTE AUTO 13.45 K/mm3 (1.96-9.15); NEUTROPHILS PERCENT AUTO 84 % (41-73); Platelet Count 268 K/mm3 (150-400); RDW Coefficient Variation 12.7 % (11.7-14.2); RDW Standard Deviation 47.2 fL (35.1-46.3); Red Blood Cell Count 4.46 M/mm3 (4.30-5.90); White Blood Cell Count 16.05 K/mm3 (4.00-11.30)
[2019-09-27 03:51] LABS: Albumin, Blood 2.6 g/dL (3.4-5.0); Anion Gap 1 mmol/L (6-16); Blood Urea Nitrogen 29 mg/dL (8-24); Bun/Creatinine Ratio 38.7 (12.0-20.0); CO2, Blood 35 mmol/L (21-32); Calcium, Blood 7.6 mg/dL (8.5-10.1); Chloride, Blood 103 mmol/L (98-108); Creatinine, Blood 0.75 mg/dL (0.60-1.20); Glomerular Filtration Rate >60 (60-); Glucose, Blood 264 mg/dL (70-99); Phosphorus, Blood 2.7 mg/dL (2.5-4.9); Potassium, Blood 4.4 mmol/L (3.5-5.5); Sodium, Blood 139 mmol/L (136-145)
--- NOTE | 2019-09-27 05:24 | NUR ---
UPDATE TO PROVIDER 09/27/[address] LUNDBERG REGARDING PATIENT STATUS. PATIENT'S URINE OUTPUT HAS DECLINED AND THE PATIENT HAS DEVELOPED A FEVER OF 101.7 F. DISCUSSED PATIENT'S FLUID STATUS AND RECENT ECHO RESULTS. TORB TO DC IV FLUIDS FOR NOW AND TO OBTAIN A SET OF BLOOD CULTURES X 2.
--- NOTE | 2019-09-27 05:27 | NUR ---
UPDATE TO PROVIDER NOTIFIED PROVIDER OF BRIGHT RED DRAINAGE FROM LOZA CATHETER. BLADDER SCAN PERFORMED. MINIMAL URINE OBSERVED IN THE BLADDER. ORDER TO IRRIGATE LOZA CATHETER.
--- NOTE | 2019-09-27 05:57 | NUR ---
SPONTANEOUS AWAKENING TRIAL 09/27/19 1322 PATIENT DID NOT TOLERATE SPONTENEOUS AWAKENING TRIAL. PRECEDEX INFUSING AT 0.3. PATIENT SITTING UP IN BED, GRABBING AT ETT, NOT TOLERATING THE VENTILATOR, AND NOT FOLLOWING DIRECTIONS.
--- NOTE | 2019-09-27 07:00 | NUR ---
AM ASSESSMENT: PT IS INTUBATED AND SEDATED ON TITRATED PROPOFOL-10MCG/KG/MIN AND PRECEDEX @ 0.7MCG/KG/MIN FOR SEDATION. PT APPEARS CALM/QUIET. WILL OCCASIONALLY/BRIEFLY OPEN EYES TO NOXIOUS STIMULI, HOWEVER, DOES NOT TRACK/FOCUS. PUPILS UNEQUAL. RT-3MM SLUGGISH, LT 2MM NON-RESPONSIVE. REMAINS IN BILATERAL WRIST RESTRAINTS TO PROTECT VITAL LINES PT WILL ATTEMPT TO PULL AT ETT WHEN LESS SEDATED. LUNGS ARE CLEAR BUT DIMINISHED IN THE UPPER LOBES AND DIMINISHED WITH COARSENESS HEARD IN THE BILATERAL BASES. SP02 >90% RANGE ON VENT SETTINGS: AC-14, TV-500, P-5, FI02 45%. HR SLIGHTLY IRREGULAR, SR W/ PAC/PVC'S (FREQUENT AT TIMES)- 70-80'S RANGE. PT REMAINS ON VASORPRESSIN AT SET RATE AND TITRATED LEVOPHED @ 6MCG/MIN AT THIS TIME. POWERGLIDES IN RT AND LT UA, PATENT, SL'D. CENTRAL LINE REMAINS IN RT SUBCLAVIAN FOR CONTINUED VASOPRESSOR USE. LOZA CATH DRAINING DARK RED/CLOUDY URINE TO GRAVITY IN SMALL AMTS. WILL DISCUSS HEMATURIA WITH DR FOR FURTHER F/U WELL PT WILL BLOODY BM THIS AM. NO APPARENT HEMORRHOIDS EXTERNALLY SEEN.
--- NOTE | 2019-09-27 07:22 | NUR ---
REC'D BEDSIDE REPORT FROM CHOCO GTZ AND AM NOW ASSUMING CARE OF THIS PT.
--- NOTE | 2019-09-27 11:00 | NUR ---
DR CORTES IN TO ASSESS PT. UPDATED WITH PT'S STATUS. SEE NEW ORDERS.
[2019-09-27 11:02] LABS: Source, Urine Catheter
[2019-09-27 11:05] LABS: Bilirubin, Urine Neg (Neg); Blood, Urine 5+ (Neg); Glucose Qualitative, Urine 1+ (Neg); Ketones, Urine 1+ (Neg); Leukocyte Esterase, Urine Neg (Neg); Nitrite, Urine Neg (Neg); Protein, Urine 3+ (Neg); Specific Gravity, Urine 1.025 (1.003-1.022); Urobilinogen, Urine NORM (Normal); pH, Urine 6.5 (5.0-8.0)
--- NOTE | 2019-09-27 11:27 | NUR ---
DR LUNDBERG AT THE BEDSIDE TO ASSESS PT. UPDATED WITH PT'S CARE. SENT UA FOR HEMATURIA, OCCULT STOOL FOR SUSPECTED BLOOD IN STOOL THIS AM, AND COVID R/O FOR PRESENTING AND CONTINUED SYMPTOMS. RAPID IN HOUSE TEST DONE AND PT PLACED IN COVID PRECAUTIONS AT THIS TIME. PT IS PENDING CT SCAN OF THE HEAD R/T PUPILS BEING UNEQUAL AND MENTATION.
[2019-09-27 11:38] LABS: Base Excess Venous 7.9 mmol/L; Bicarbonate Venous 30.2 mmol/L (24.0-30.0); PCO2 Venous 48.1 mmHg (38-42); PO2 Venous 55.3 mmHg (38-42); pH Blood Venous 7.43 (7.34-7.37)
[2019-09-27 11:49] LABS: Appearance, Urine Turbid (Clear); Bacteria Mod /hpf; Color, Urine Red (P-Yellow); Red Blood Cells, Urine TNTC /hpf (0-2); Squamous Epithelial Cells Not Seen /hpf (Few); White Blood Cells, Urine TNTC /hpf (0-5)
[2019-09-27 12:44] LABS: BASOPHILS ABSOLUTE AUTO 0.04 K/mm3 (0.00-0.23); BASOPHILS PERCENT AUTO 0 % (0-2); EOSINOPHILS ABSOLUTE AUTO 0.02 K/mm3 (0.00-0.68); EOSINOPHILS PERCENT AUTO 0 % (0-6); Hematocrit 43.8 % (37.0-53.0); Hemoglobin 13.7 g/dL (13.5-17.5); IMMATURE GRAN ABSOLUTE AUTO 0.03 K/mm3 (0.00-0.10); IMMATURE GRAN PERCENT AUTO 0 % (0-1); LYMPHOCYTES ABSOLUTE AUTO 1.67 K/mm3 (0.84-5.20); LYMPHOCYTES PERCENT AUTO 14 % (21-46); MONOCYTES ABSOLUTE AUTO 0.71 K/mm3 (0.16-1.47); MONOCYTES PERCENT AUTO 6 % (4-13); Mean Corpuscular HGB 31.3 pg (26.0-34.0); Mean Corpuscular HGB Conc 31.3 g/dL (31.5-36.5); Mean Corpuscular Volume 100 fL (80-100); Mean Platelet Volume 9.9 fL (9.1-12.4); NEUTROPHILS ABSOLUTE AUTO 9.22 K/mm3 (1.96-9.15); NEUTROPHILS PERCENT AUTO 79 % (41-73); Platelet Count 222 K/mm3 (150-400); RDW Coefficient Variation 12.7 % (11.7-14.2); RDW Standard Deviation 47.1 fL (35.1-46.3); Red Blood Cell Count 4.38 M/mm3 (4.30-5.90); White Blood Cell Count 11.69 K/mm3 (4.00-11.30)
[2019-09-27 13:05] LABS: International Normalized Ratio 1.29; Prothrombin Time Results 13.6 Sec (9.7-11.5)
--- NOTE | 2019-09-27 13:11 | NUR ---
DR WILLS REPORTS NO ACUTE CHANGES ON CT SCAN OF HEAD. WILL CONTINUE TO MONITOR NEURO AND WAIT FOR URINE CX'S TO COME BACK. PT BEING COVERED SINCE YESTERDAY WITH GENARO/GAUTAM.
[2019-09-27 14:49] LABS: Stool Occult Blood Guaiac 1 Pos (Neg)
--- NOTE | 2019-09-27 16:23 | NUR ---
SHIFT SUMMARY: PT REMAINS INTUBATED AND SEDATED ON TITRATED PRECEDEX @ 0.7MCG.KG/MIN AND PROPOFOL @ 20MCG/KG/MIN AND IN BILATERAL WRIST RESTRAINTS. PT REMAINS FAIRLY SEDATED, HOWEVER, WILL GRIMACE OR SHAKE HEAD WITH NOXIOUS STIMULI. PT WILL OPEN EYES OCCASIONALLY WITH NOXIOUS STIMULI, HOWEVER, DOES NOT FOCUS AND TRACK WITH EYES. PUPILS REMAIN UNEQUAL WITH RT PUPIL 3MM AND SLUGGISH AND LT PUPIL 2MM AND NON-REACTIVE. 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 LUNGS ARE CLEAR, BUT DIMINISHED IN THE BILATERAL BASES THIS EVENING. VENT SETTINGS FOLLOWS: AC-14, TV-500, P-5, FI02 40% WITH SP02 SATS >90%. PT CONTINUES TO HAVE LITTLE TO NO GAG REFLEX WITH SUB-EPIGLOTTIC SX'ING. HR IRREGULAR, SR WITH PAC/PVC'S 70-80'S RANGE. PT REMAINS ON LEVOPHED @ 4MCG/MIN, VASOPRESSOR REMAINS ON STANDBY SINCE EARLIER THIS SHIFT. ABD SOFT/ROUND/NO-GRIMACE TO PALPATION. BT'S REMAINS HYPOACTIVE X 4 QUADS. OGT REMAINS TO LIS T/O WITH MINIMAL OUTPUT. LOZA CATH DRAINING CLOUDY, MAROONISH URINE TO GRAVITY. NEW UA SENT TODAY AND PENDING CX'S. PT REMAINS ON VANCO/ZOSYN. -FULLL CODE STATUS -CBG'S Q6H -WEAN OFF PRESSORS WHEN ABLE TO
[2019-09-27 18:02] LABS: Hematocrit 43.7 % (37.0-53.0); Hemoglobin 13.9 g/dL (13.5-17.5)
--- NOTE | 2019-09-27 18:48 | NUR ---
SEDATION VACATION: PRECEDEX AND PROPOFOL PLACED ON STANDBY FOR APPROX 30 MIN. PT DID OPEN EYES, HOWEVER, UNABLE TO TRACK/FOCUS ON THIS RN OR FOLLOW ANY COMMANDS. PT KEPT MOUTHING "NO, NO, NO" AND THRASHING HEAD SIDE TO SIDE. PT RESTARTED ON PRECEDEX AND PROPOFOL AT THIS TIME.
--- NOTE | 2019-09-27 19:17 | NUR ---
REPORTED OFF TO CHOCO STAUFFER WHOM IS NOW ASSUMING CARE OF THIS PT.
--- NOTE | 2019-09-27 21:19 | NUR ---
ASSUMED PT CARE AT 1915 PT INTUBATED AND SEDATED. PROPOFOL AT 20MCG/KG/MIN. PRECEDEX AT 0.7 MCG/KG/HR. VENT SETTINGS: AC 14, TV 500, PEEP 5, FIO2 40%. PT ABLE TO OPEN EYES TO VERBAL PAINFUL/NOXIOUS STIMULI. DOES NOT FOLLOW COMMANDS, BUT ABLE TO LOCALIZE PAIN. WHEN ASKED TO SQUEEZE HAND HE WILL NOD HIS HEAD "NO". HOWEVER, WHEN ASKED IF IN PAIN HE WILL NOD HIS HEAD "YES". PT MOUTHED TO ME "WATER". EDUCATED PT THAT HE HAD A BREATHING TUBE IN PLACE AND COULD NOT HAVE WATER AT THIS TIME. ASKED PT IF HE KNEW WHERE HE WAS AND HE SHOOK HIS HEAD "NO". REORIENTED TO PLACE, TIME, AND EVENT. PT MEDICATED WITH FENTANYL 50MCG PER ORDERS FOR PAIN AND ADJUNCT SEDATION; APPEARS EFFECTIVE. PT IS IN NSR WITH PAC'S; HR 80'S. LEVOPHED GTT INFUSING AT 4MCG/MESFIN; ABLE TO TITRATE DOWN TO 2MCG/MIN. SEE FLOWSHEET FOR BP'S. BILATERAL RADIAL PULSES ARE FAINT/WEAK TO PALPATE. PEDAL PULSES FOUND VIA DOPPLER AND ARE VERY FAINT/WEAK WITH INTERMITTENT BLOOD FLOW NOTED. PERIPHERAL CIRCULATION IS VERY POOR. BILATERAL FEET ARE COOL AND DUSKY; CAPILLARY REFILL IS LESS THAN 3 SECONDS. CHANGED DRESSING TO DIABETIC WOUND TO PLANTAR ASPECT OF RIGHT FOOT. CLEANSED WITH WOUND CLEANSER, PATTED DRY, PACKED 1/4 INCH GAUZE SOAKED IN STERILE WATER TO TUNNELING WOUND, COVERED WITH DRY STERILE GAUZE AND WRAPPED WITH KERLEX. WOUND BED IS 80% SLOUGH AND 20% GRANULATION. FOUL ODOR PRESENT WITH MODERATE AMOUNTS OF YELLOW/PURULENT DRAINAGE NOTED; WILL ENTER NURSING ORDERS TO CHANGE DAILY. PT HAS MULTIPLE SCATTERED SCABS/SCARS AND BRUISING T/O BODY. TEMP LOZA CATHETER IS PATENT AND DRIANING DARK, TEA COLORED URINE WITH RED SEDIMENT NOTED. PT NOTED TO HAVE A SMALL CLEAR/BROWN MUCUS STOOL, BUT NO SOLID BM.
[2019-09-28 04:23] LABS: PCO2 Venous 46.7 mmHg (38-42); pH Blood Venous 7.48 (7.34-7.37)
[2019-09-28 04:24] LABS: Base Excess Venous 11.2 mmol/L; Bicarbonate Venous 32.9 mmol/L (24.0-30.0); PO2 Venous 37.8 mmHg (38-42)
[2019-09-28 04:32] LABS: BASOPHILS ABSOLUTE AUTO 0.03 K/mm3 (0.00-0.23); BASOPHILS PERCENT AUTO 0 % (0-2); EOSINOPHILS ABSOLUTE AUTO 0.08 K/mm3 (0.00-0.68); EOSINOPHILS PERCENT AUTO 1 % (0-6); Hematocrit 42.4 % (37.0-53.0); Hemoglobin 13.6 g/dL (13.5-17.5); IMMATURE GRAN ABSOLUTE AUTO 0.03 K/mm3 (0.00-0.10); IMMATURE GRAN PERCENT AUTO 0 % (0-1); LYMPHOCYTES ABSOLUTE AUTO 1.59 K/mm3 (0.84-5.20); LYMPHOCYTES PERCENT AUTO 14 % (21-46); MONOCYTES ABSOLUTE AUTO 0.67 K/mm3 (0.16-1.47); MONOCYTES PERCENT AUTO 6 % (4-13); Mean Corpuscular HGB 31.7 pg (26.0-34.0); Mean Corpuscular HGB Conc 32.1 g/dL (31.5-36.5); Mean Corpuscular Volume 99 fL (80-100); Mean Platelet Volume 9.6 fL (9.1-12.4); NEUTROPHILS ABSOLUTE AUTO 8.63 K/mm3 (1.96-9.15); NEUTROPHILS PERCENT AUTO 78 % (41-73); Platelet Count 224 K/mm3 (150-400); RDW Standard Deviation 47.3 fL (35.1-46.3); Red Blood Cell Count 4.29 M/mm3 (4.30-5.90); White Blood Cell Count 11.03 K/mm3 (4.00-11.30)
[2019-09-28 04:46] LABS: Albumin, Blood 2.2 g/dL (3.4-5.0); Anion Gap 2 mmol/L (6-16); Blood Urea Nitrogen 22 mg/dL (8-24); Bun/Creatinine Ratio 29.5 (12.0-20.0); CO2, Blood 34 mmol/L (21-32); Calcium, Blood 7.9 mg/dL (8.5-10.1); Chloride, Blood 106 mmol/L (98-108); Creatinine, Blood 0.75 mg/dL (0.60-1.20); Glomerular Filtration Rate >60 (60-); Glucose, Blood 143 mg/dL (70-99); Magnesium, Blood 2.2 mg/dL (1.6-2.4); Phosphorus, Blood 1.9 mg/dL (2.5-4.9); Potassium, Blood 3.3 mmol/L (3.5-5.5); Sodium, Blood 142 mmol/L (136-145)
[2019-09-28 04:49] LABS: International Normalized Ratio 1.11; Prothrombin Time Results 11.8 Sec (9.7-11.5)
--- NOTE | 2019-09-28 05:19 | NUR ---
SEDATION VACATION/SBT TITRATED PRECEDEX OFF AND PROPOFOL DOWN TO 15MCG/KG/MIN. PT ABLE TO OPEN EYES TO VERBAL STIMULI. ABLE TO FOLLOW COMMANDS AND NOD HEAD YES/NO TO QUESTIONS. PT BECAME VERY PAINFUL TOWARD END OF SBT AND REQUIRED 50MCG OF FENTANYL WITH MINIMAL EFFECT. THEREFORE, TURNED PRECEDEX AND PROPOFOL BACK ON; SEE FLOWSHEET FOR TITRATION. PT ABLE TO PULL GOOD TIDAL VOLUMES >400, RESP RATE INCREASED WITH DISCOMFORT; HOWEVER, PT EASILY REDIRECTABLE. VSS REMAINED STABLE; SEE FLOWSHEET. PT TOLERATED WELL.
--- NOTE | 2019-09-28 05:25 | NUR ---
END OF SHIFT SUMMARY NO SIGNIFICANT CHANGES T/O SHIFT. PT CURRENTLY AT PROPOFOL 30MCG/KG/MIN, PRECEDEX AT 0.7MCG/KG/HR. VENT SETTINGS AC 14, TV 500, PEEP 5, FIO2 40%. SEE EARLIER NOTE REGARDING SBT AND SEDATION VACATION TRIAL. LEVOPHED HAS BEEN OFF SINCE APPROXIMATELY 0400 WITH STABLE BP'S, SEE FLOWSHEET. NSR WITH PAC'S AND PVC'S; HR 70-80'S. OG REMAINS TO LIS WITH GREEN BILE NOTED TO CANISER. NO MORE BROWN/CLEAR MUCUSY STOOL NOTED. TEMP LOZA CATHETER REMAINS PATENT AND DRAINING DARK, TEA COLORED URINE TO GRAVITY WITH RED TINGE/SEDIMENT NOTED. WILL CONTINUE TO MONITOR UNTIL REPORT IS HANDED OFF TO ONCOMING RN.
--- NOTE | 2019-09-28 07:20 | NUR ---
REC'D BEDSIDE REPORT FROM CHOCO STAUFFER AND AM NOW ASSUMING CARE OF THIS PT.
--- NOTE | 2019-09-28 10:37 | NUR ---
DR LUNDBERG IN TO ASSESS PT. PROPOFOL PLACED ON STANDBY AND PT SX'D AND PLACED ON SPONTANEOUS MODE TO ASSESS READINESS FOR POTENTIAL EXTUBATION. WILL DOSE WITH LASIX PRIOR TO EXTUBATION. WILL GIVE LASIX AND REASSESS READINESS IN 30 MINUTES.
--- NOTE | 2019-09-28 11:07 | NUR ---
SBT: PT BECOMING MORE RESTLESS. RR INCREASING 30-40'S RANGE AND TV'S 250-350. PT GIVEN IV LASIX AND DR LUNDBERG IN AT THE BEDSIDE TO REASSESS PT. WILL GIVE THE PT ANOTHER 30 MINUTES FOR SBT AND IF RR AND TV DON'T IMPROVE, MAY NEED TO REASSESS READINESS TO BE EXTUBATED.
--- NOTE | 2019-09-28 11:29 | NUR ---
PT DIURESING WELL AT THIS TIME. DR LUNDBERG IN AGAIN TO REASSESS. WILL GIVE THE PT 10-15 MORE MINUTES, THEN MAKE A DECISION, WHETHER PT IS READY TO EXTUBATE.
--- NOTE | 2019-09-28 12:01 | NUR ---
PT EXTUBATED AT THIS TIME. PLACED ON 5L 02 VIA N/C AND STARTED NEBULIZER TX. SP02 MID 90% RANGE. PT HAS A MODERATE, WET, PRODUCTIVE COUGH THAT PT HAS DIFFICULT TIME CLEARING THROAT.
--- NOTE | 2019-09-28 13:01 | NUR ---
PT UPDATE: PT HAS BEEN RESTLESS SINCE EXTUBATION. PT CONTINUALLY CALLING OUT. MOSTLY YELLING OUT THAT HE WANTS "WATER," "FOOD," AND "I WANT OUT OF HERE."
[2019-09-28 13:45] LABS: Vancomycin, Trough 18.9 ug/mL (5.0-10.0)
--- NOTE | 2019-09-28 14:43 | NUR ---
PT COMPLETED SWALLOW EVALUATION. SEE REPORT. PT ABLE TO PASS CRITERIA, HOWEVER, BECOMES VERY EASILY DYSPNEIC AND AFTER EDUCATING PT ON PACING HIMSELF, PT DID NOT SHOW UNDERSTANDING OF THIS CONCEPT, HE WOULD CONTINUE TO ASK TO DRINK WATER, EVEN WHEN EDUCATED HE SHOULD STOP TO CATCH HIS BREATH.
--- NOTE | 2019-09-28 15:11 | NUR ---
PT UPDATE: PT HAS STOPPED CALLING OUT CONTINUOUSLY AFTER DOING SWALLOW EVALUATION. PT SOUNDS COARSE T/OH, HOWEVER, COARSENESS DECREASES WITH GOOD COUGH EFFORT, THOUGH PT CONTINUES TO HAVE A DIFFICULT TIME CLEARING SECREATIONS.
--- NOTE | 2019-09-28 18:43 | NUR ---
SHIFT SUMMARY: PT EXTUBATED TODAY AT 1201 AND WAS PLACED ON 5L 02 VIA N/C. SP02 REMAINS >90% ON THIS, HOWEVER, OBTAINING A CONSISTENT SPO2 READING CAN PROVE TO BE DIFFICULT AT TIMES. PT DOES CONTINUE TO CALL OUT REPEATEDLY AT TIMES. SPEECH IS SOFT AND DIFFICULT TO UNDERSTAND. PT REPORTS HE DOES WEAR UPPER/LOWER PARTIALS, HE IS MISSING MOST OF HIS TEETH. LUNGS REMAIN COARSE T/O AT TIMES, BUT DOES CLEAR, EXCEPT FOR BASES WITH COUGH. PT DOES AT TIMES HAVE A DIFFICULT TIME GETTING SPUTUM UP. PT BECOMES VERY EASILY DYSPNEIC WITH EXERTION. PT ABLE TO MINIMALLY HELP WITH TURNS IN THE BED. PT ABLE TO REMAIN OFF LEVOPHED TODAY. DIURESED WELL WITH LASIX 40MG BID TODAY. PT CONTINUED TO HAVE SM MUCOUSY STOOLS. PT REMAINS NPO EXCEPT SMALL SIPS OF WATER AT THIS TIME AND WILL NEED A SPEECH THERAPY EVALUATION FOR POSSIBLE ASPIRATION. PT CONTINUALLY ASKS FOR FOOD AND WATER.
--- NOTE | 2019-09-28 19:32 | NUR ---
REPORTED OFF TO CHOCO PEREZ WHOM IS NOW ASSUMING CARE OF THIS PT.
--- NOTE | 2019-09-28 20:10 | NUR ---
PATIENT SLEEPING OFF AND ON AWAKENS TO SLIGHT STIMULI. SOB WITH ACTIVITY. GENERALIZED WEAKNESS. 5L/NC. HYPOTENSION, LEVOPHED REMAINS OFF, PRECEDEX TITRATED TO 0.7 MCG. WHEN AWAKE PATIENT VERY FOCUSED ON NEEDING DRINK OF WATER. KEVIN SIPS OF WATER, NEEDING TO BE REMINDING TO NOT DRINK THE WATER QUICKLY.
--- NOTE | 2019-09-28 22:25 | NUR ---
PATIENTS BROTHER (TIM) IN TO VISIT FROM [place], PATIENT ABLE TO HOLD A GOOD CONVERSATION WITH HIS BROTHER, BROTHER ASSISTED PATIENT WITH MAKING CALLS TO OTHER FAMILY. PATIENT SENT [employer]ISA BANK CARD HOME WITH HIS BROTHER TO CHECK ON BANK ACCOUNT. UNABLE TO FIND PATIENTS GLASSES IN HIS BELONGINGS. PATIENTS BOTHER TO [place] FOR THE NIGHT PLANS TO BE BACK EARLY IN THE MORNING TO TRY TO TALK WITH THE DOCTORS.
[2019-09-29 03:48] LABS: Base Excess Venous 9.7 mmol/L; Bicarbonate Venous 31.6 mmol/L (24.0-30.0); PCO2 Venous 48.9 mmHg (38-42); PO2 Venous 44.5 mmHg (38-42); pH Blood Venous 7.45 (7.34-7.37)
[2019-09-29 04:01] LABS: BASOPHILS ABSOLUTE AUTO 0.03 K/mm3 (0.00-0.23); BASOPHILS PERCENT AUTO 0 % (0-2); EOSINOPHILS ABSOLUTE AUTO 0.06 K/mm3 (0.00-0.68); EOSINOPHILS PERCENT AUTO 1 % (0-6); Hematocrit 41.6 % (37.0-53.0); Hemoglobin 13.1 g/dL (13.5-17.5); IMMATURE GRAN ABSOLUTE AUTO 0.02 K/mm3 (0.00-0.10); IMMATURE GRAN PERCENT AUTO 0 % (0-1); LYMPHOCYTES ABSOLUTE AUTO 1.04 K/mm3 (0.84-5.20); LYMPHOCYTES PERCENT AUTO 10 % (21-46); MONOCYTES ABSOLUTE AUTO 0.59 K/mm3 (0.16-1.47); MONOCYTES PERCENT AUTO 6 % (4-13); Mean Corpuscular HGB 31.3 pg (26.0-34.0); Mean Corpuscular HGB Conc 31.5 g/dL (31.5-36.5); Mean Corpuscular Volume 100 fL (80-100); Mean Platelet Volume 10.2 fL (9.1-12.4); NEUTROPHILS ABSOLUTE AUTO 8.47 K/mm3 (1.96-9.15); NEUTROPHILS PERCENT AUTO 83 % (41-73); Platelet Count 202 K/mm3 (150-400); RDW Coefficient Variation 13.2 % (11.7-14.2); RDW Standard Deviation 48.3 fL (35.1-46.3); Red Blood Cell Count 4.18 M/mm3 (4.30-5.90); White Blood Cell Count 10.21 K/mm3 (4.00-11.30)
[2019-09-29 04:18] LABS: Magnesium, Blood 2.1 mg/dL (1.6-2.4)
[2019-09-29 04:19] LABS: Albumin, Blood 2.1 g/dL (3.4-5.0); Anion Gap 2 mmol/L (6-16); Blood Urea Nitrogen 25 mg/dL (8-24); Bun/Creatinine Ratio 23.6 (12.0-20.0); CO2, Blood 34 mmol/L (21-32); Calcium, Blood 7.9 mg/dL (8.5-10.1); Chloride, Blood 106 mmol/L (98-108); Creatinine, Blood 1.06 mg/dL (0.60-1.20); Glomerular Filtration Rate >60 (60-); Glucose, Blood 93 mg/dL (70-99); Phosphorus, Blood 4.4 mg/dL (2.5-4.9); Potassium, Blood 3.6 mmol/L (3.5-5.5); Sodium, Blood 142 mmol/L (136-145)
--- NOTE | 2019-09-29 06:30 | NUR ---
SUMMARY PATIENT AWAKE ARGUMENTATIVE, CONTINUOUSLY WANTING SOMETHING TO DRINK. GIVEN SIPS OF WATER T/O NIGHT. PATIENT NOW WANTING TO GET UP OUT OF BED, YELLING OUT "I GOTA GET UP" DESPITE EXPLAINING TO PATIENT REASON FOR BEDREST FOR EXAMPLE HYPOTENSION AND WEAKNESS. PATIENT YELLING OUT, C/O BACK PAIN, FENTANYL IV GIVEN FOR PAIN. PRECEDEX CONTINUES AT 0.7 MCG. PATIENT CONTINUES ON 5L/NC, SOB WITH ACTIVITY CONTINUES.
--- NOTE | 2019-09-29 11:58 | NUR ---
UPDATE PT BECOMING INCREASINGLY AGITATED. PT YELLING AT STAFF AND NOT FOLLOWING DIRECTIONS. PRECEDEX AT 0.7MCG/KG/HR. PT MEDICATED WITH HALDOL. PT BECOMES MORE AGITATED AND ATTEMPTS TO CLIMB OUT OF BED. PT NOT FOLLOWING DIRECTIONS AND PULLING AT CENTRAL LINE. SECURITY CALLED AND AT BEDSIDE. PT PLACED IN SOFT BILATERAL WRIST RESTRAINTS. PT MEDICATED WITH ATIVAN PER DR. CORTES. PT STILL ALERT AND ORIENTED. VS STABLE. O2 SATS REMAIN ABOVE 90% ON 5L NC. RESPIRATIONS BETWEEN 20-30 AT THIS TIME. WILL CONTINUE TO MOINTOR CLOSELY.
[2019-09-29 14:46] LABS: Vancomycin, Trough 30.4 ug/mL (5.0-10.0)
--- NOTE | 2019-09-29 18:16 | NUR ---
SHIFT SUMMARY PT ALERT AND ORIENTED TO SELF, FAMILY, AND PLACE. VS STABLE. HR HAS BEEN 70-90'S. BP STABLE. O2 SATS REMAIN ABOVE 90% ON CPAP WITH 5L BLEED IN. PRECEDEX STILL INFUSING AT 0.7MCG/KG/HR. PT IN BILATERAL SOFT WRIST RESTRAINTS. PT AGITATED AT TIMES AND YELLING AT STAFF. PT REPOSITIONED Q2H AND NEEDED. LOZA CATHETER DC'D THIS SHIFT AND PT ABLE TO VOID USING THE URINAL, BUT HAS OCCASIONAL INCONTINENCE WHILE SLEEPING. PT HAS BEEN INCONTINENT OF STOOL THIS SHIFT. BORDER OF REDNESS TO LEFT ARM HAS BEEN MARKED THIS AM. LEFT ARM POSITIVE FOR DVT AND DR. CORTES AWARE. WOUND TO RIGHT FOOT CLEANED AND REPACKED THIS SHIFT WITH NEW DRESSING. WILL CONTINUE TO MONITOR AND REPORT TO ONCOMING RN.
--- NOTE | 2019-09-29 21:08 | NUR ---
PATIENT SLEEPING WITH CPAP 12 WITH 4L BLEED IN IN PLACE. WHEN CPAP OFF PLACED ON 5L/NC. AWAKENS TO SLIGHT STIMULI ANSWERING QUESTIONS APPROPRIATELY, SPEECH DIFFICULT TO UNDERSTAND AT TIMES. PATIENT HAVING URGENCY WHEN NEEDING TO VOID, CONDOM CATH PLACED, ATTENDS REMAIN IN PLACE. GENERALIZED EDEMA CONTINUES. LEFT ARM BRIGHT RED. ARMS AND LEGS ELEVATED ON PILLOWS.
[2019-09-30 04:00] LABS: BASOPHILS ABSOLUTE AUTO 0.03 K/mm3 (0.00-0.23); BASOPHILS PERCENT AUTO 0 % (0-2); EOSINOPHILS ABSOLUTE AUTO 0.08 K/mm3 (0.00-0.68); EOSINOPHILS PERCENT AUTO 1 % (0-6); Hematocrit 39.8 % (37.0-53.0); Hemoglobin 12.5 g/dL (13.5-17.5); IMMATURE GRAN ABSOLUTE AUTO 0.02 K/mm3 (0.00-0.10); IMMATURE GRAN PERCENT AUTO 0 % (0-1); LYMPHOCYTES ABSOLUTE AUTO 0.97 K/mm3 (0.84-5.20); LYMPHOCYTES PERCENT AUTO 14 % (21-46); MONOCYTES ABSOLUTE AUTO 0.57 K/mm3 (0.16-1.47); MONOCYTES PERCENT AUTO 8 % (4-13); Mean Corpuscular HGB 31.6 pg (26.0-34.0); Mean Corpuscular HGB Conc 31.4 g/dL (31.5-36.5); Mean Corpuscular Volume 101 fL (80-100); Mean Platelet Volume 9.8 fL (9.1-12.4); NEUTROPHILS ABSOLUTE AUTO 5.29 K/mm3 (1.96-9.15); NEUTROPHILS PERCENT AUTO 76 % (41-73); Platelet Count 194 K/mm3 (150-400); RDW Standard Deviation 48.4 fL (35.1-46.3); Red Blood Cell Count 3.95 M/mm3 (4.30-5.90); White Blood Cell Count 6.96 K/mm3 (4.00-11.30)
[2019-09-30 04:18] LABS: Anion Gap 3 mmol/L (6-16); Blood Urea Nitrogen 28 mg/dL (8-24); Bun/Creatinine Ratio 20.4 (12.0-20.0); CO2, Blood 34 mmol/L (21-32); Chloride, Blood 104 mmol/L (98-108); Creatinine, Blood 1.37 mg/dL (0.60-1.20); Glomerular Filtration Rate 56 (60-); Glucose, Blood 241 mg/dL (70-99); Magnesium, Blood 2.1 mg/dL (1.6-2.4); Phosphorus, Blood 3.5 mg/dL (2.5-4.9); Potassium, Blood 3.3 mmol/L (3.5-5.5); Sodium, Blood 141 mmol/L (136-145)
--- NOTE | 2019-09-30 05:52 | NUR ---
SUMMARY PATIENT SLEEPING OFF AND ON T/O NIGHT. ATE HIS DINNER AT APROX 2200, NEEDING TO BE FEED DUE TO WEAKNESS AND SWELLING IN HANDS. PATIENT KEVIN WELL ON 4L/NC. PATIENT BECOMING RESTLESS AND EASILY UPSET WHEN ASKED TO WAIT. CONDOM CATH IN PLACE DUE TO URGENCY WHEN NEEDING TO VOID, PATIENT DOING WELL WITH REMEMBERING THAT IT IS IN PLACE. PRECEDEX CONTINUES AT 0.7 MCG, AND ATIVAN GIVEN X1 DURING THE NIGHT. WHILE SLEEPING WEARING CPAP 12, 4L BLEED IN.
--- NOTE | 2019-09-30 08:00 | NUR ---
ASSUMED CARE: REPORT RECEIVED FROM ANA King RN. ASSUMED CARE OF THIS PT AT APPROX 0700. ON ASSESSMENT, THE PT IS A&O TO SELF, FAMILY, PLACE & FOLLOWING DIRECTION. HIS MENTATION IS IMPROVED SUBSTANTIALLY FROM YESTERDAY's ENCOUNTERS & HE IS NOW MORE REDIRECTABLE WELL. LS REMAIN DIM IN BASES, PT ON 4L NC WHILE AWAKE & WEARING CPAP WHILE SLEEPING W/ O2 SATS > 92%. MONITOR SHOWS SR W/ HR 80s, SBP 90s WHILE RESTING BUT OTHERWISE STABLE. PT HAS NO GI COMPLAINTS & IS TOLERATING PO INTAKE WELL; ST PRECAUTIONS IN PLACE. CONDOM CATH IN PLACE IS PATENT/ DRAINING DARK YELLOW URINE. SKIN CONDITION DETAILED IN ASSESSMENT. Q2H REPOSITIONING TO PROTECT/ MAINTAIN SKIN INTEGRITY. WILL CONTINUE TO MONITOR & UPDATE NEEDED.
--- NOTE | 2019-09-30 10:00 | NUR ---
DR AGRAWAL: PROVIDER AT BEDSIDE. REQUEST FROM THIS RN TO D/C MIKHAIL R/T PT's REACTION OF INCREASED AGITATION, HE STS OKAY. NO OTHER CHANGES AT THIS TIME. CONTINUE POC PER SMALL STOCK FACER.
--- NOTE | 2019-09-30 11:00 | NUR ---
DR HANNA: PROVIDER AT BEDSIDE TO RAYMUNDO PT. DISCUSSED POC W/ PT & PT's BROTHER. THIS RN REQUESTS THAT ORDERS FOR CBG CHECKS & SS INSULIN BE UPDATED TO REFLECT PT's CURRENT DIETARY STATUS. ORDERS PLACED. ALSO DISCUSSED PRIOR ORDER FOR FLUID RESTRICTION & PROVIDER GIVES OKAY TO D/C.
--- NOTE | 2019-09-30 18:51 | NUR ---
SHIFT SUMMARY: NO ACUTE CHANGES SINCE PRIOR UPDATES. PT REMAINS A&O TO ALL, BUT NEEDING FREQUENT REMINDERS & ASKING REPETETIVE QUESTIONS T/O THE DAY. PT HAS RECEIVED MINIMAL AMNTS OF LORAZEPAM THIS SHIFT & HAS TOLERATED THE TITRATION DOWN OF PRECEDEX WELL W/ NO EXTREME ANXIETY, MOOD SWINGS OR OUTBURSTS. LS REMAIN DIM, PT ON 4L NC W/ O2 SATS > 92%. MONITOR SHOWS SR W/ HR 80s, BP STABLE. PT HAS VERY HEALTHY APPETITE & IS TOLERATING PO INTAKE WELL. CONDOM CATH REPLACED TWICE THIS SHIFT AFTER BECOMING DISCONNNECTED. SKIN CONDITION UNCHANGED. WILL CONTINUE TO MONITOR & REPORT OFF TO ONCOMING RN.
--- NOTE | 2019-09-30 20:50 | NUR ---
PATIENT ANXIOUS AND RESTLESS, YELLING OUT "I JUST WANT TO GO TO SLEEP" BECOMING ANGRY WHEN NURSE LEAVING THE ROOM TO GET ATIVAN. AFTER INCREASING PRECEDEX TO 0.4 MCG AND HS MEDS GIVEN PATIENT MORE RELAXED VERBALIZED THAT HE WAS SORRY FOR GETTING ANGRY. PATIENT ABLE REPOSITION IN BED FOR COMFORT, NEEDING REMINDING TO BE CAREFUL OF NOT PULLING ON IV LINES, AND MONITORS WHEN MOVING IN BED. CONDOM CATH IN PLACE DUE TO URGENCY WITH URINATION.
--- NOTE | 2019-09-30 21:10 | NUR ---
PATIENT WAKING UP AND YELLING OUT TO BE PUT TO SLEEP. REASSURANCE GIVEN AND CPAP PLACED WITH 2L BLEED IN.
[2019-10-01 04:28] LABS: BASOPHILS ABSOLUTE AUTO 0.02 K/mm3 (0.00-0.23); BASOPHILS PERCENT AUTO 0 % (0-2); EOSINOPHILS ABSOLUTE AUTO 0.15 K/mm3 (0.00-0.68); EOSINOPHILS PERCENT AUTO 2 % (0-6); Hematocrit 40.9 % (37.0-53.0); Hemoglobin 12.9 g/dL (13.5-17.5); IMMATURE GRAN ABSOLUTE AUTO 0.03 K/mm3 (0.00-0.10); IMMATURE GRAN PERCENT AUTO 0 % (0-1); LYMPHOCYTES ABSOLUTE AUTO 1.05 K/mm3 (0.84-5.20); LYMPHOCYTES PERCENT AUTO 13 % (21-46); MONOCYTES ABSOLUTE AUTO 0.92 K/mm3 (0.16-1.47); MONOCYTES PERCENT AUTO 11 % (4-13); Mean Corpuscular HGB 31.7 pg (26.0-34.0); Mean Corpuscular HGB Conc 31.5 g/dL (31.5-36.5); Mean Corpuscular Volume 101 fL (80-100); Mean Platelet Volume 9.8 fL (9.1-12.4); NEUTROPHILS ABSOLUTE AUTO 6.08 K/mm3 (1.96-9.15); NEUTROPHILS PERCENT AUTO 74 % (41-73); Platelet Count 217 K/mm3 (150-400); RDW Coefficient Variation 12.5 % (11.7-14.2); RDW Standard Deviation 46.8 fL (35.1-46.3); Red Blood Cell Count 4.07 M/mm3 (4.30-5.90); White Blood Cell Count 8.25 K/mm3 (4.00-11.30)
[2019-10-01 05:19] LABS: Albumin, Blood 2.2 g/dL (3.4-5.0); Albumin/Globulin Ratio 0.6 (0.8-1.8); Bilirubin, Total 0.4 mg/dL (0.1-1.0); Bun/Creatinine Ratio 23.5 (12.0-20.0); Calcium, Blood 8.1 mg/dL (8.5-10.1); Creatinine, Blood 1.32 mg/dL (0.60-1.20); Globulin, Blood 3.4 g/dL (2.2-4.0); Magnesium, Blood 2.2 mg/dL (1.6-2.4); Phosphorus, Blood 3.9 mg/dL (2.5-4.9); Potassium, Blood 4.2 mmol/L (3.5-5.5); Total Protein, Blood 5.6 g/dL (6.4-8.2)
--- NOTE | 2019-10-01 06:27 | NUR ---
SUMMARY PATIENT CONTINUES TO BE RESTLESS OFF AND ON T/O NIGHT, BECOMING ANGRY WHEN TOLD NO OR MADE TO WAIT FOR FOOD OR MEDICATIONS. PRECEDEX TITRATED DURING THE NIGHT TO HELP PATIENT RELAX. ALSO GIVEN ATIVAN NEEDED TO HELP HIM SLEEP. FENTANYL GIVEN FOR CHRONIC BACK PAIN AND FOR C/O HEAD ACHE. PATIENT ABLE TO REPOSITION SELF IN BED AND ABLE TO FEED SELF WITH ENCOURAGEMENT. PATIENT REF TO WEAR CPAP. OXYGEN NOW AT 2L/NC EVEN WHILE SLEEPING, MAINTAINING BIOX >93%
--- NOTE | 2019-10-01 09:32 | NUR ---
CARE ASSUMED ASSESSMENT COMPLETED, VSS, HR 90'S-115 WITH OCCASIONAL PAC'S. PRECEDEX AT 0.5MCG/KG/HR. PT ON 2L/NC WITH SPO2 >95%, SOB WITH EXERTION, LS COARSE IN BASES WITH INSP AND EXP WHEEZES T/O, LOOSE PRODUCTIVE COUGH NOTED. EDEMA TO LE'S 1+, TO UE'S 2+, L ARM REMAINS SWOLLEN AND SLIGHTLY REDDENED, REDNESS IMPROVING ACCORDING TO LINE PREVIOUSLY DRAWN ON PT'S ARM. PT ALERT, ORIENTED TO SELF/PLACE/SITUATION, IRRITABLE AND DEMANDING. ASSISTED UP TO CHAIR PER PT REQUEST FOR BREAKFAST, 2 PERSON MAX ASSIST WITH WALKER. PT ASSISTED WITH BREAKFAST, TOLERATED PO AND PILLS WITHOUT COUGHING/CHOKING, NEEDS ASSISTANCE D/T HAND SWELLING AND WEAK BILLING MANAGER. PT MEDICATED PER MAY FOR PAIN, ST AT BEDSIDE TO ASSIST WITH SNACK. PT REMAINS UP IN CHAIR SLEEPING ON AND OFF.
--- NOTE | 2019-10-01 12:59 | NUR ---
UPDATE PT WORKED WITH O/T, TRANSFERRED WITH WALKER, GAIT BELT, AND 1 PERSON ASSIST, GAIT REMAINS UNSTEADY. PT TO [facility] FOR BM, CONDOM CATH CHANGED. ASSISTED PT WITH LUNCH, TOLERATED WELL, APPETITE GOOD. TITRATING PRECEDEX DOWN ABLE. LS REMAIN COARSE IN BASES, WHEEZES IMPROVE WITH NEB TREATMENTS. DR. HANNA WAS IN THIS MORNING AT 1000, O2 TURNED OFF AT THIS TIME, SPO2 REMAINS >95% ON RA. PLAN TO GET PATIENT BACK TO BED THIS AFTERNOON AND GIVE BED BATH.
--- NOTE | 2019-10-01 15:21 | NUR ---
UPDATE DR. BELLO IN TO ASSESS PATIENT, NEW ORDERS RECEIVED. SHORTLY AFTER DR. BELLO LEFT ROOM, PT BEGAN YELLING, ATTEMPTING TO GET OOB, WAS AGITATED AND UNCOOPERATIVE. HALDOL AND BENADRYL ADMINISTERED PER ORDERS, WELL TYLENOL FOR PAIN. PT NOW RESTING WITH EYES CLOSED, SPO2 93% ON RA, HR 108, BP 118/72. WILL CONTINUE TO MONITOR.
[2019-10-01 17:31] LABS: Vancomycin, Trough 14.7 ug/mL (5.0-10.0)
--- NOTE | 2019-10-01 18:18 | NUR ---
END OF SHIFT PT CALMED AND SLEPT AFTER BENADRYL AND HALDOL, WAS WOKEN AT 1630, WOUND CARE AND BEDBATH COMPLETED, PT FED DINNER WITHOUT DIFFICULTY. PT THEN C/O BACK AND NECK PAIN, MEDICATED WITH FENTANYL. PT SLEEPING AT THIS TIME. VSS T/O SHIFT WITH 1 BRIEF EPISODE OF HTN THAT RESOLVED WITH PAIN CONTROL. LS COARSE AND WHEEZY TODAY, WHEEZES IMPROVE WITH NEBS. STRONG PRODUCTIVE COUGH REMAINS PRESENT. PT ON RA AT THIS TIME WITH SPO2 >90%. PT REMAINS AGITATED AND DEMANDING, STATING TO THIS RN "I'M GONNA KICK YOUR ASS" WHEN HE WAS NOT ASSISTED PROMPTLY ENOUGH TO BED. NO COMBATIVE OR THREATENING BEHAVIORS. MEDICATED WITH ATIVAN AND FENTANYL MULTIPLE TIMES TODAY, BENADRYL AND HALDOL ONCE WITH GOOD RESULTS, PRECEDEX TITRATED OFF. WILL CONTINUE TO MONITOR AND REPORT TO ONCOMING SHIFT.
[2019-10-01 19:09] LABS: PCO2 Arterial 53.7 mmHg (35-45); PO2 Arterial 204 mmHg (80-100); pH Blood Arterial 7.32 (7.35-7.45)
--- NOTE | 2019-10-01 19:22 | NUR ---
pt had repeat cardiac arrest. cpr initiated. FAmily notified brother want to stay the course but if he declines will change code status and plan of care. His brother is anurse and was open in discussing his prognosis.
[2019-10-01 19:27] LABS: BASOPHILS ABSOLUTE AUTO 0.05 K/mm3 (0.00-0.23); BASOPHILS PERCENT AUTO 0 % (0-2); EOSINOPHILS ABSOLUTE AUTO 0.18 K/mm3 (0.00-0.68); EOSINOPHILS PERCENT AUTO 2 % (0-6); Hematocrit 46.1 % (37.0-53.0); IMMATURE GRAN ABSOLUTE AUTO 0.08 K/mm3 (0.00-0.10); IMMATURE GRAN PERCENT AUTO 1 % (0-1); LYMPHOCYTES PERCENT AUTO 19 % (21-46); MONOCYTES ABSOLUTE AUTO 0.76 K/mm3 (0.16-1.47); MONOCYTES PERCENT AUTO 7 % (4-13); Mean Corpuscular HGB 30.7 pg (26.0-34.0); Mean Corpuscular HGB Conc 30.4 g/dL (31.5-36.5); Mean Corpuscular Volume 101 fL (80-100); Mean Platelet Volume 9.7 fL (9.1-12.4); NEUTROPHILS ABSOLUTE AUTO 8.19 K/mm3 (1.96-9.15); NEUTROPHILS PERCENT AUTO 72 % (41-73); Platelet Count 264 K/mm3 (150-400); RDW Coefficient Variation 12.5 % (11.7-14.2); RDW Standard Deviation 47.1 fL (35.1-46.3); Red Blood Cell Count 4.56 M/mm3 (4.30-5.90); White Blood Cell Count 11.36 K/mm3 (4.00-11.30)
--- NOTE | 2019-10-01 19:35 | NUR ---
CODE BLUE PT CODED AT SHIFT CHANGE, SEE CODE FLOW SHEET. PT WAS AWAKE AND TALKING, ASSISTED TO REPOSITION, REQUESTED SOMETHING TO DRINK. WHILE THIS RN OUT TO GET DRINK, PT WENT INTO PULSELESS VT ARREST, STAFF AT BEDSIDE TO BEGIN CPR. AMIO 150MG AND EPI 1MG EACH ADMINISTERED X1, PT SHOCKED X2, REGAINED PULSES AND SINUS TACH RHYTHM. PT INTUBATED, SEDATED WITH PROPOFOL, AMIO INFUSING. LOZA PLACED, MAG ADMINISTERED. VENT SETTINGS AC 12, VT 500, SPO2 40%, PEEP 5. HR 114, SPO2 95%, BP 137/93, PT'S RR 26. SPUTUM AND URINE SPECIMENS SENT TO LAB. TORI RN AT BEDSIDE DURING CODE AND GIVEN REPORT TO ASSUME CARE.
--- NOTE | 2019-10-01 19:37 | NUR ---
ASSESSMENT/ASSUMED CARE PT INTUBATED AND SEDATED S/P CODE. LUNGS CLEAR AND DECREASED IN THE BASES AFTER SUCTIONING THICK CREAM COLORED SECRECTIONS VIA ET TUBE, SAMPLE SENT TO LAB. HEART RATE TACHY MURMUR NOTED. BP STABLE. GERENAL EDEMA. BT+ OG PLACE GASTRIC CONTENTS ASPERATED. CONNECTED TO LIS. LOZA TEMP CATH 18 FR PLACED BY CINDY. CLEAR YELLOW URINE DRAINING. UA SENT. CENTRAL LINE TO RIGHT SUBCLAVIAN DRSG INTACT. AMIODARONE INFUSING AT 1 MG/HR, PROPOFOL STARTED AT 30 MCQ/MIN INCREASED TO 40 THAN 50 MCQ/MIN FOR SEDATION. POWER GLIDE TO RIGHT UPPER ARM SALINE LOCKED. BILAT WRIST RESTRAINT APPLIED AFTER INTUBATION TO PREVENT SELF EXTUBATION.
[2019-10-01 19:38] LABS: Source, Urine Catheter
[2019-10-01 19:44] LABS: International Normalized Ratio 1.07; Prothrombin Time Results 11.4 Sec (9.7-11.5)
[2019-10-01 19:46] LABS: Appearance, Urine Clear (Clear); Bilirubin, Urine Neg (Neg); Blood, Urine 4+ (Neg); Color, Urine Yellow (P-Yellow); Glucose Qualitative, Urine 2+ (Neg); Ketones, Urine Neg (Neg); Leukocyte Esterase, Urine Neg (Neg); Nitrite, Urine Neg (Neg); Protein, Urine 3+ (Neg); Specific Gravity, Urine 1.015 (1.003-1.022); Urobilinogen, Urine NORM (Normal)
[2019-10-01 19:53] LABS: Amorphous Light (0-Heavy); Bacteria Mod /hpf; Squamous Epithelial Cells Not Seen /hpf (Few); Transitional Epithelial Cells Few /hpf (0-Rare)
[2019-10-01 19:53] LABS: Albumin, Blood 2.4 g/dL (3.4-5.0); Albumin/Globulin Ratio 0.6 (0.8-1.8); Bilirubin, Total 0.5 mg/dL (0.1-1.0); Bun/Creatinine Ratio 20.1 (12.0-20.0); Calcium, Blood 8.2 mg/dL (8.5-10.1); Creatinine, Blood 1.44 mg/dL (0.60-1.20); Magnesium, Blood 2.1 mg/dL (1.6-2.4); Potassium, Blood 4.5 mmol/L (3.5-5.5); Total Protein, Blood 6.4 g/dL (6.4-8.2); Troponin I 0.039 ng/mL (0.000-0.040)
--- NOTE | 2019-10-01 20:26 | NUR ---
MEDS/ PT BP DOWN TO 86/64 MAP 70 HEART RATE 116. NOTIFIED DR HANNA. OBATAINED ORDER FOR BURT-SYNEPHRINE TO KEEP MAP GREATER THAN 60.
[2019-10-01 21:10] LABS: PCO2 Arterial 48.7 mmHg (35-45); PO2 Arterial 62.6 mmHg (80-100); pH Blood Arterial 7.43 (7.35-7.45)
--- NOTE | 2019-10-01 21:21 | NUR ---
BP SPOKE WITH DR HANNA ABOUT BP 78/57 MAP 65 HEART RATE 95 ON NEOSYNEPHRINE AT 20MCQ/MIN. CONT BURT AT 20 MCQ/MIN AND TITRATE TO KEEP MAP ABOVE 60.
[2019-10-02 03:39] LABS: BASOPHILS ABSOLUTE AUTO 0.04 K/mm3 (0.00-0.23); BASOPHILS PERCENT AUTO 0 % (0-2); EOSINOPHILS ABSOLUTE AUTO 0.21 K/mm3 (0.00-0.68); EOSINOPHILS PERCENT AUTO 2 % (0-6); Hematocrit 37.6 % (37.0-53.0); IMMATURE GRAN ABSOLUTE AUTO 0.03 K/mm3 (0.00-0.10); IMMATURE GRAN PERCENT AUTO 0 % (0-1); LYMPHOCYTES ABSOLUTE AUTO 1.53 K/mm3 (0.84-5.20); LYMPHOCYTES PERCENT AUTO 16 % (21-46); MONOCYTES ABSOLUTE AUTO 0.92 K/mm3 (0.16-1.47); MONOCYTES PERCENT AUTO 10 % (4-13); Mean Corpuscular HGB 31.6 pg (26.0-34.0); Mean Corpuscular HGB Conc 31.9 g/dL (31.5-36.5); Mean Corpuscular Volume 99 fL (80-100); Mean Platelet Volume 10.1 fL (9.1-12.4); NEUTROPHILS ABSOLUTE AUTO 6.76 K/mm3 (1.96-9.15); NEUTROPHILS PERCENT AUTO 71 % (41-73); Platelet Count 229 K/mm3 (150-400); RDW Coefficient Variation 12.5 % (11.7-14.2); RDW Standard Deviation 45.5 fL (35.1-46.3); White Blood Cell Count 9.49 K/mm3 (4.00-11.30)
[2019-10-02 04:03] LABS: Albumin, Blood 1.9 g/dL (3.4-5.0); Albumin/Globulin Ratio 0.6 (0.8-1.8); Bilirubin, Total 0.3 mg/dL (0.1-1.0); Bun/Creatinine Ratio 20.3 (12.0-20.0); Calcium, Blood 7.9 mg/dL (8.5-10.1); Creatinine, Blood 1.48 mg/dL (0.60-1.20); Globulin, Blood 3.3 g/dL (2.2-4.0); Magnesium, Blood 2.6 mg/dL (1.6-2.4); Phosphorus, Blood 3.1 mg/dL (2.5-4.9); Potassium, Blood 3.9 mmol/L (3.5-5.5); Total Protein, Blood 5.2 g/dL (6.4-8.2); Troponin I 0.086 ng/mL (0.000-0.040)
[2019-10-02 04:50] LABS: PCO2 Arterial 47.3 mmHg (35-45); PO2 Arterial 82.8 mmHg (80-100); pH Blood Arterial 7.45 (7.35-7.45)
--- NOTE | 2019-10-02 06:27 | NUR ---
SHIFT SUMMARY PT CONT INTUBATED AND ON MECH VENT. SEDATED WITH PROPOFOL AT 45 MCQ/KG/MIN. PT OPENS EYES TO VERBAL STIMULI AND FOLLOWS SOME SIMPLE INSTRUCTIONS LIKE OPEN YOUR MOUTH. LUNGS COARSE BUT CLEARS WITH SUCTIONING. VENT SETTINGS AC 12 TV 400 PEEP 5 FIO2 40%. HEART RATE 90-100. PT ON AMIODARONE AT 0.5MG/HR AND BURT-SYNEPHRINE AT 20 MCQ/MIN. BILAT SOFT WRIST RESTRAINTS ON. PT TURNED Q2HR. LOZA CATH PATENT DRAINING CLEAR YELLOW URINE. BLOOD GLUCOSE Q6HR, COVERED TWICE. OG TO LIS. PT MED WITH ATIVAN AND FENTANYL PRN. REPORT TO ON COMING NURSE.
--- NOTE | 2019-10-02 08:18 | NUR ---
CARE ASSUMED ASSESSMENT COMPLETED. VENT AC 12, Vt 500, FIO2 40%, PEEP 5, PT'S RR 21, SPO2 >95%. PT SEDATED WITH PROPOFOL 45MCG, APPEARS TO BE RESTING WELL, NO GRIMACING OR AGITATION NOTED. HEPARIN INFUSION 16U, PHENYLEPHERINE 20MCG, AMIODARON 0.5MG. LS CTA AT THIS TIME, MODERATE SECRETIONS FROM ETT. HR 90'S SINUS WITH PAC'S, MURMUR NOTED, MAP 80'S WITH PHENYLEPHERINE. EDEMA REMAINS PRESENT IN ALL EXTREMS AND GENITALS, REDNESS TO L ARM HAS RESOLVED. DRESSING TO R FOOT CDI. SEE FLOWSHEET FOR GTT TITRATIONS.
--- NOTE | 2019-10-02 12:40 | NUR ---
UPDATE/SEDATION VACATION PT RESTED QUIETLY ALL MORNING, BP STABLE, BURT TITRATED OFF. PROPOFOL, AMIO, AND HEPARIN RATES UNCHANGED. SEDATION VACATION COMPLETED, PT WOKE RIGHT AWAY WHEN PROPOFOL SHUT OFF, OPENED EYES, FOLLOWED SIMPLE DIRECTIONS, NODDED "YES" AND "NO" APPROPRIATELY TO SIMPLE QUESTIONS. REPORTS PAIN, MEDICATED PER MAY, PROPOFOL RESUMED AT 45MCG/KG/MIN. PT NOW RESTING QUIETLY. RESTRAINTS REMAIN IN PLACE, TF INITIATED PER ORDERS, DR. KELLOGG TO SEE PATIENT THIS AFTERNOON. HR REMAINS 90'S-110 SIT WITH PAC'S.
--- NOTE | 2019-10-02 18:25 | NUR ---
END OF SHIFT PT REMAINS OFF OF PHENYLEPHERINE, TUBE FEEDING INITIATED PER ORDERS, TOLERATED WELL. PT MEDICATED FOR PAIN/DISCOMFORT WITH FENTANYL X2 TODAY WITH GOOD RESULTS. VENT SETTINGS UNCHANGED THIS SHIFT, PROPOFOL REMAINS 45MCG, AMIODARONE 0.5MG, HEPARIN 18U. NO EPISODES OF VT THIS SHIFT, VSS, HR 90-110 SINUS WITH PAC'S. LS CLEAR TODAY WITH ETT SUCTIONING, SMALL AMOUNT OF SECRETIONS FROM ETT. DR. KELLOGG CAME TO ASSESS THIS AFTERNOON, PLANS TO BEGIN PO AMIODARONE TOMORROW AND DISCUSS ISCHEMIA TESTING AND IMPLANTED DEFIBRILLATOR PLACEMENT WITH PT'S BROTHER AND PATIENT WHEN HE IS AWAKE AND ALERT. DR. KELLOGG TO CALL PT'S BROTHER TIM TO GIVE UPDATE. REPORT TO ONCOMING SHIFT.
--- NOTE | 2019-10-02 19:40 | NUR ---
ASSESSMENT/ASSUMED CARE PT INTUBATED AND ON [facility]. OPENS EYES TO VERBAL STIMULI. FOLLOWS SOME INSTRUCTIONS. BILAT WRIST RESTRAINTS ON. LUNGS CLEAR BUT DECREASED IN THE BASES. VENT SETTINGS AC 12 TV 400 PEEP 5 FIO2 40%. SUCTIONED SMALL AMT CREAM COLORED SECRECTIONS VIA ET TUBE. HEART RATE REGULAR 90-100'S. BP STABLE. GENERAL EDEMA. BT+ HYPOACTIVE. OG WITH TUBE FEEDING AT GOAL RATE OF 30 ML/HR. RESIDUAL 150ML REFED. CENTRAL LINE TO RIGHT SUBCLAVIAN, DRSG INTACT. POWER GLIDE TO RIGHT UPPER ARM, DRSG INTACT. BOTH SITES CLEAR. PROPOFOL AT 45 MCQ/KG/MIN, HEPARIN 18 UNITS/KG/HR VIA CENTRAL LINE. NS AT 20 ML/HR VIA POWER GLIDE. LOZA CATH PATENT DRAINING PALE YELLOW URINE. DRSG TO RIGHT FOOT CD&I. ORAL CARE AND REPOSITIONING DONE. PT RESTING QUIELTY. AMIODARONE GTT STOPPED. PT TO START PO AMIODARONE TONIGHT.
--- NOTE | 2019-10-03 | NUR ---
REASSESSMENT PT CONT INTUBATED AND ON [facility] VENT. NO VENT CHANGES. PT OPENS EYES TO VERBAL STIMULI. NODS HEAD WHEN ASKED IF IN PAIN. MED WITH FENTANYL 50MCQ. LUNGS CONT CLEAR BUT DECREASED IN THE BASES. HEART RATE REGULAR. BP STABLE. BT+ HYPOACTIVE. RESIDUAL 30 ML REFED.
[2019-10-03 03:40] LABS: BASOPHILS ABSOLUTE AUTO 0.03 K/mm3 (0.00-0.23); BASOPHILS PERCENT AUTO 0 % (0-2); EOSINOPHILS ABSOLUTE AUTO 0.12 K/mm3 (0.00-0.68); EOSINOPHILS PERCENT AUTO 1 % (0-6); Hematocrit 37.8 % (37.0-53.0); IMMATURE GRAN ABSOLUTE AUTO 0.03 K/mm3 (0.00-0.10); IMMATURE GRAN PERCENT AUTO 0 % (0-1); LYMPHOCYTES PERCENT AUTO 12 % (21-46); MONOCYTES ABSOLUTE AUTO 1.01 K/mm3 (0.16-1.47); MONOCYTES PERCENT AUTO 10 % (4-13); Mean Corpuscular HGB 31.2 pg (26.0-34.0); Mean Corpuscular HGB Conc 31.7 g/dL (31.5-36.5); Mean Corpuscular Volume 98 fL (80-100); Mean Platelet Volume 9.9 fL (9.1-12.4); NEUTROPHILS PERCENT AUTO 76 % (41-73); Platelet Count 240 K/mm3 (150-400); RDW Coefficient Variation 12.7 % (11.7-14.2); RDW Standard Deviation 45.6 fL (35.1-46.3); Red Blood Cell Count 3.85 M/mm3 (4.30-5.90); White Blood Cell Count 9.79 K/mm3 (4.00-11.30)
[2019-10-03 04:08] LABS: Albumin, Blood 1.8 g/dL (3.4-5.0); Albumin/Globulin Ratio 0.5 (0.8-1.8); Bilirubin, Total 0.3 mg/dL (0.1-1.0); Bun/Creatinine Ratio 19.9 (12.0-20.0); Calcium, Blood 8.1 mg/dL (8.5-10.1); Creatinine, Blood 1.36 mg/dL (0.60-1.20); Globulin, Blood 3.6 g/dL (2.2-4.0); Magnesium, Blood 2.4 mg/dL (1.6-2.4); Phosphorus, Blood 3.7 mg/dL (2.5-4.9); Potassium, Blood 4.2 mmol/L (3.5-5.5); Total Protein, Blood 5.4 g/dL (6.4-8.2)
[2019-10-03 05:33] LABS: PCO2 Arterial 39.4 mmHg (35-45); PO2 Arterial 98.1 mmHg (80-100); pH Blood Arterial 7.51 (7.35-7.45)
--- NOTE | 2019-10-03 06:11 | NUR ---
SHIFT SUMMARY PT CONT INTUBATED AND ON [facility]. SEDATION PLACED ON HOLD THIS AM AND WEANING DONE. PT MED WITH ATIVAN FOR WEANING DUE TO INCREASED RESP RATE. PT PLACED BACK ON VENT AND RESEDATED WITH PROPOFOL. NO VENT CHANGES DURING THE NIGHT. VSS OFF BURT-SYNEPHRINE. TUBE FEED AT GOAL RATE OF 30 ML/HR WITH WATER 30 ML Q4HR. PT TURNED Q2HR. BILAT SOFT WRIST RESTRAINTS ON. PT MED WITH FENTANYL 50 MCQ ONCE DURING THE NIGHT FOR PAIN WITH GOOD RESULTS. REPORT TO ON COMING NURSE
--- NOTE | 2019-10-03 07:45 | NUR ---
AM NOTE... ASSUMED CARE OF PT APROX 0700, PT IS INTUBATED AND SEDATED ON VENT SETTINGS OF AC 14, TV 500, 30%FIO2. L/S CLEAR T/O DIM IN THE BASES. PT HAS GENERALIZED EDEMA NOTED, 2+ TO HIS LEFT ARM AND HAND, DEPENDENT SCROTAL EDEMA NOTED WELL. PT'S VS CURRENTLY STABLE. PROPOFOL RATE AT 40 MCG/KG/MIN. TUBE FEED IS RUNNING PER ORDERS AND IS AT GOAL RATE. BT PRESENT AND HYPOACTIVE, ABD IS SOFT NONTENDER TO PALP. RESIDUAL OF TUBE FEED WAS 15MLS. PT HAS CENTRAL LINE TO THE LEFT IJ THAT IS TO BE REMOVED TODAY ONCE PT HAS PICC LINE PLACED. WILL CONTINUE TO MONITOR.
--- NOTE | 2019-10-03 12:38 | NUR ---
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
--- NOTE | 2019-10-03 18:27 | NUR ---
SHIFT SUMMARY... NO ACUTE NEGATIVE CHANGES NOTED THIS SHIFT, PT WAS STARTED ON PRECEDEX WITH PLANS TO TITRATE OFF OF THE PROPOFOL, PROPOFOL HAS BEEN TITRATED FROM 40 MCG/KG/MIN TO 20MCG/KG/MIN, PRECEDEX WAS SET TO 0.4 MCG/KG/HR. PT'S VS HAVE BEEN STABLE T/O SHIFT. VENT SETTINGS REMAIN THE SAME AC: 12/500/5/30%. PLAN IS TO EXTUBATE TOMORROW PER DR. JOHNSON. PT'S LOZA IS PATENT AND DRAINING CLEAR YELLOW URINE TO GRAVITY. PT HAS BEEN FEBRILE WITH TMAX OF 100.6 THIS SHIFT, PROVIDER AWARE. TUBE FEED RATE INCREASED TO 35MLS/HR PT HAS TOLERATED THIS WELL WITH 50MLS OF RESIDUAL. PT WAS MEDICATED FOR PAIN PRN x2 THIS SHIFT PER EMAR. PT'S BROTHER HAS BEEN AT THE BEDSIDE THIS AM AN PLANS TO RETURN TOMORROW. WILL CONTINUE TO MONITOR UNTIL REPORT IS GIVEN TO ONCOMING RN.
--- NOTE | 2019-10-03 21:00 | NUR ---
ASSUMPTION OF CARE PT INTUBATED WITH SEDATION, AWAKE AND ORIENTED TO SELF AND FOLLOWING DIRECTIONS, PT NODS HEAD "YES" WHEN ASKED ABOUT PAIN, PRN FENTANYL PROVIDED. INITIAL GTT'S: PROPOFOL @ 20, PRECEDEX @ 0.4, HEPARIN @ 21 (SEE FLOWSHEET FOR TITRATIONS) PUPILS UNEQUAL, THIS APPEARS TO BE CHRONIC, BOTH REACTIVE TO LIGHT. VENT SET TO AC 12/500/5/30%, MONITOR SHOWS SINUS RHYTHM WITH PAC'S, BP STABLE. L ARM WITH INCREASED SWELLING COMPARED TO R ARM, R/T DVT. WOUND TO R FOOT, WOUND CARE PROVIDED PER DAY SHIFT ORDERED, DRESSING CURRENTLY C/D/I, SOME REDNESS NOTED TO SACRAL AREA. TF INFUSING @ GOAL RATE OF 35ml/hr. PT SOMEONE AGITATED UPON ASSUMPTION OF CARE, PULLING AT RESTRAINTS, COMMUNICATING WANTING THE ETT OUT, EXPLAINED NEED FOR ETT AND RESTRAINTS AND REASSESS FOR POSSIBLE EXTUBATION IN AM. PRECEDEX INCREASED TO 0.6. PT BECAME INCREASINGLY AGITATED, PULLING AT RESTRAINTS, LIFTING HEAD OFF OF BED, PROPOFOL INCREASED TO 30 WITH GOOD EFFECT. WILL CONTINUE TO MONITOR AND DECREASE PROPOFOL TOLERATED.
--- NOTE | 2019-10-04 01:00 | NUR ---
MIDSHIFT ASSESSMENT PT AROUSABLE, APPEARS TO BE RESTING COMFORTABLY. VSS, PROPOFOL DECREASED AND ATIVAN ADMINISTERED FOR CONTINUED COMFORT.
[2019-10-04 04:27] LABS: BASOPHILS ABSOLUTE AUTO 0.04 K/mm3 (0.00-0.23); BASOPHILS PERCENT AUTO 0 % (0-2); EOSINOPHILS ABSOLUTE AUTO 0.13 K/mm3 (0.00-0.68); EOSINOPHILS PERCENT AUTO 1 % (0-6); Hematocrit 35.5 % (37.0-53.0); Hemoglobin 11.3 g/dL (13.5-17.5); IMMATURE GRAN ABSOLUTE AUTO 0.08 K/mm3 (0.00-0.10); IMMATURE GRAN PERCENT AUTO 1 % (0-1); LYMPHOCYTES ABSOLUTE AUTO 1.13 K/mm3 (0.84-5.20); LYMPHOCYTES PERCENT AUTO 11 % (21-46); MONOCYTES ABSOLUTE AUTO 1.12 K/mm3 (0.16-1.47); MONOCYTES PERCENT AUTO 11 % (4-13); Mean Corpuscular HGB 31.2 pg (26.0-34.0); Mean Corpuscular HGB Conc 31.8 g/dL (31.5-36.5); Mean Corpuscular Volume 98 fL (80-100); Mean Platelet Volume 9.8 fL (9.1-12.4); NEUTROPHILS ABSOLUTE AUTO 7.65 K/mm3 (1.96-9.15); NEUTROPHILS PERCENT AUTO 75 % (41-73); Platelet Count 241 K/mm3 (150-400); RDW Coefficient Variation 12.9 % (11.7-14.2); RDW Standard Deviation 46.5 fL (35.1-46.3); Red Blood Cell Count 3.62 M/mm3 (4.30-5.90); White Blood Cell Count 10.15 K/mm3 (4.00-11.30)
[2019-10-04 04:44] LABS: Bun/Creatinine Ratio 23.2 (12.0-20.0); Creatinine, Blood 1.42 mg/dL (0.60-1.20); Magnesium, Blood 2.3 mg/dL (1.6-2.4); Phosphorus, Blood 4.9 mg/dL (2.5-4.9); Potassium, Blood 4.2 mmol/L (3.5-5.5)
--- NOTE | 2019-10-04 06:29 | NUR ---
SHIFT SUMMARY PT REMAINS INTUBATED AND SEDATED, PROPOFOL TITRATED OFF FOR SEDATION VACATION. SBT THIS AM, PASSED FROM RT STANDPOINT. PRECEDEX INFUSING @ 0.7 (SEE FLOWSHEET FOR TITRATIONS), PT REMAINS AROUSABLE AND FOLLOWS COMMANDS, PT ANXIOUS FOR EXTUBATION, OCCASSIONALLY PULLS AT RESTRAINTS. NO CHANGES TO HEPARIN GTT. MONITOR SHOWS SINUS RHYTHM WITH SOME PAC'S, PT HYPOTENSIVE AT TIMES BUT MAP REMAINED> 60, EKG COMPLETED THIS AM (SEE PTS CHART). TF INF @ 35ml/hr, NO BM THIS SHIFT. LOZA IN PLACE AND DRAINING LIGHT YELLOW URINE.
--- NOTE | 2019-10-04 10:07 | NUR ---
PT SEDATED ON PRECEDEX AT 07MCG FOR [facility]. PT AWAKENS TO SOUND AND FOLLOWS SIMPLE COMMANDS. PT NODS HEAD APPROPRIATELY TO QUESTIONS. NODS HEAD YES TO PAIN IN BACK. PT'S BROTHER AT BEDSIDE; PROVIDES COMFORT TO PT, CALMS PT. PT SOMEWHAT ANXIOUS; IS REDIRECTABLE. PT DENIES PAIN TO R ARM. MORE EDEMA NOTED TO R ARM, ALTHOUGH BOTH HANDS ARE EDEMATOUS AT 3+ EDEMA. R FOOT DRSG C/D/I. RIGHT FOOT COOL C/T LEFT FOOT. CAP REFILL WNL TO BLE. PULSES VIA DOPPLER ONLY. TF AT GOAL W 10CC RESISDUAL. DR JOHNSON IN AT 1000. PT PLACED ON PS 5 AND TOLERATING WELL. TF STOPPED IN ANTICIPATION OF EXTUBATION TODAY. FENT IVP GIVEN FOR BACK PAIN W GOOD EFFECT.
--- NOTE | 2019-10-04 11:38 | NUR ---
PT EXTUBATED AT 1115 AND PLACED ON 4L VIA N/C. PT HAS WEAK COUGH AND IS BARELY ABLE TO WHISPER. PRECEDEX TURNED OFF. RESTRAINTS DC'D AT 1115. PT'S BROTHER IS AT BEDSIDE.
--- NOTE | 2019-10-04 11:50 | NUR ---
PRECEDEX DC'D PT IS WEAK W WEAK COUGH. FENT WAS GIVEN FOR CHEST PAIN R/T CPR. PTS SATS 95% ON 4L. RESP SLIGHTLY LABORED AND SHALLOW, BUT OVERALL PT STABLE AND DOING WELL OFF VENT. DR JOHNSON UPDATED.
[2019-10-04 17:28] LABS: Vancomycin, Trough 16.1 ug/mL (5.0-10.0)
--- NOTE | 2019-10-04 19:52 | NUR ---
PT EXTUBATED AT 1115, PRECEDEX HELD AT THIS TIME. LASIX GIVEN X2 WITH GOOD U/O. LUNGS CLEAR WITH OCCASSIONAL CAORSENESS. PT UNABLE TO CLEAR ALL SECRETIONS. PT ABLE TO COUGH, COUGH AND VOICE VERY WEAK. PT WAS GIVEN BEDSIDE SWALLOW EVAL, ABLE TO SWALLOW CLEAR LIQUIDS SAFELY. FOOD HELD D/T WEAK COUGH. COUGH BECAME STRONGER T/O SHIFT. COUGHING UP WHITE TO YELLOW SPUTUM AT END OF SHIFT. PT PLACED ON RA AROUND 1500, SATS REMAINED >94%. PT C/O SOB ONLY WHEN PLACED FLAT. POWERGLIDE PLACED TO CEPHALIC SO THAT CENTRAL LINE CAN BE DC'D. PT C/O CONSTANT CHEST WALL/RIB PAIN 2ND TO CPR. FENT GIVEN Q2HRS FOR PAIN. PT BECAME INCREASINGLY MORE HYPERTENSIVE SHIFT PROGRESSED. HYDRALAZINE GIVEN W/O EFFECT. DR JOHNSON GIVEN FULL UPDATE AT 1700. LABETALOL PRN ORDERED. WOUND TO FOOT CLEANED, RE-PACKED, AND RE-DRESSED. WOUND 1CM DEEP W MACERATION TO EDGES. DR AGRAWAL NOTIFIED. PODIATRY CONSULT TO BE PLACED TOMORROW OR MON FOR POSSIBLE DEBRIDEMENT. PT ORIENTED TO SELF, PLACE, YEAR, AND PRESIDENT BUT PRESENTS VERY CHILD-LIKE. EMOTIONAL LABILE. IRRITABLE, HITS FIST DOWN, CRIES, STATES DEMANDS IN HIGH PITCHED VOICE. PT REPEATS REQUESTS IN DEMANDING WAY CONTINUOUSLY. PT STATED SEVERAL TIMES HE WANTED TO , THEN WOULD REQUEST SOMETHING TO DRINK, OR PAIN MEDS. AT END OF SHIFT PT EXCERTED SELF IN FIT LIKE MANNER OVER NEEDING TO HAVE BM. PT WAS SHOUTING OUT, HITTING FISTS, AND BUCKING IN BED. PT WAS PURPLE TO SOME EXTENT AND DIAPHORETIC. SATS WHERE 88% ON RA. 4L N/C PLACED. PT SOMEWHAT REDIRECTABLE. PT MEDICATED FOR PAIN, ANXIETY, AND AGITATION.
--- NOTE | 2019-10-04 20:26 | NUR ---
ASSUMPTION OF CARE PT AWAKE IN ROOM, REPEATEDLY YELLING "HELP", THRASHING AROUND IN BED, CALL LIGHT WITHIN REACH. TO PTS ROOM, PT STS HE NEEDS TO HAVE BM, PLACED PT ON BEDPAN. PT ORIENTED TO SELF, YEAR, LOCATION AND FOLLOWING DIRECTIONS. PT EMOTIONALY LABILE, VERY ANXIOUS, GRABS AT STAFF WHEN ASSISTING WITH TURNS, APPEARS TO BE OUT OF FEAR, PRN ATIVAN PROVIDED. PT REPORTS CHEST PAIN, S/P CPR, PRN FENTANYL PROVIDED. PT IS TACHYCARDIC, TACHYPNEIC AND HYPERTENSIVE UPON ASSUMPTION OF CARE, VITAL SIGNS IMPROVE AFTER ATIVAN AND FENTANYL ADMINISTRATION, HR DECREASED FROM 140'S TO 120'S, RR DECREASED FROM LOW 30'S TO 25-30, MINIMAL IMPROVEMENT IN BLOOD PRESSURE. TEMPERATURE OF 100.6 NOTED, BLANKET REMOVED, PLACED ONLY TOP SHEET ON PT. PT HAS VERY WEAK COUGH AND SOFT VOICE THAT IS DIFFICULT TO UNDERSTAND AT TIMES, PT TOLERATING PO FLUIDS. 2L PER NC PLACED ON PT TO MAINTAIN O2 SATURATIONS>90%. LOZA REMAINS IN PLACE DRAINING PALE YELLOW URINE. PT IS VERY WEAK BUT MOVES ALL EXTREMETIES AND IS ABLE TO MAKE MINIMAL POSITIONAL CHANGES IN BED INDEPENDENTLY.
--- NOTE | 2019-10-04 20:45 | NUR ---
DR STARKS IN TO SEE PT, ORDER FOR EKG IN THE MORNING.
--- NOTE | 2019-10-04 23:12 | NUR ---
PT REPORTS DIFFICULTY SLEEPING, CALL PLACED TO DR JOHNSON REGARDING PAIN MANAGEMENT AND DIFFICULTY SLEEPING, NEW ORDER FOR NORCO 5/325 1-2 TABLETS Q4H NEEDED FOR PAIN.
--- NOTE | 2019-10-05 00:30 | NUR ---
CENTRAL LINE DC'D @ 0006, PT DID NOT TOLERATE WELL, FENTANYL PROVIDED PRIOR TO PROCEDURE AND ATIVAN ADMINISTERED DURING PROCEDURE. PRESSURE HELD x13 MINUTES, PETROLEUM GUAZE AND TEGADERM PLACED OVER SITE.
--- NOTE | 2019-10-05 03:15 | NUR ---
TO PTS ROOM, PT YELLING OUT FOR HELP. PT REQUESTS TO GET OUT BED, REPORTS PAIN "ALL OVER", INFORMED PT HE NEEDED TO STAY IN BED. PT BECAME VERY UPSET AND FLIPPED THIS RN OFF, PT THEN REFUSED TO ANSWER ANYMORE PAIN ASSESSMENT QUESTIONS, REMOVED NASAL CANULA AND REFUSED TO LET RN PLACE BACK IN NARE OR MOUTH. PT MEDICATED FOR PAIN HE WAS GRIMACING WITH NURSING CARE AND PREVIOUSLY REPORTED PAIN. PT BECAME MORE RELAXED AND FELL ASLEEP, O2 SATURATIONS DROPPED TO 70'S ON RA, PT PLACED ON 5L PER NC.
[2019-10-05 04:15] LABS: Bun/Creatinine Ratio 23.4 (12.0-20.0); Calcium, Blood 8.3 mg/dL (8.5-10.1); Creatinine, Blood 1.41 mg/dL (0.60-1.20); Magnesium, Blood 2.1 mg/dL (1.6-2.4); Phosphorus, Blood 4.3 mg/dL (2.5-4.9); Potassium, Blood 3.4 mmol/L (3.5-5.5)
--- NOTE | 2019-10-05 04:30 | NUR ---
PT YELLING "HELP", THIS RN TO ROOM, PT REQUESTS TO GET OUT OF BED, RE-EDUCATED PT ON NEED FOR BEDREST, PT AGREED TO REPOSITIONING FOR COMFORT.
--- NOTE | 2019-10-05 07:11 | NUR ---
SHIFT SUMMARY PT REMAINS AWAKE FOR MOST OF NIGHT, FREQUENTLY YELLS OUT "HELP", CALL LIGHT REMAINS WITHIN REACH. PT ORIENTED TO SELF, YEAR, LOCATION, AND FOLLOWS DIRECTIONS, REMAINS LABILE AND IRRITABLE AT TIMES. PRN ATIVAN AND FENTANYL PROVIDED FOR ANXIETY/AGITATION AND PAIN, PRN NORCO ADMINISTERED x1, PT REMAINED NPO AFTER 0000 PT WAS HAVING INCREASED DIFFICULTY SWALLOWING AND CLEARING SECRETIONS, LS COARSE TOWARDS END OF SHIFT AND PT NOT TOLERATING RA, CURRENTLY ON 4L 02 PER NC. 10MG LABETALOL IV ADMINISTERED x2 THIS SHIFT FOR HTN. PT HAD LARGE VOLUME URINE OUTPUT THIS SHIFT, APPROX 5L TOTAL. HEPARING GTT CONTINUES TO INFUSE, NO CHANGES IN GTT RATE. EKG COMPLETED THIS AM, SEE PTS CHART. REPORT GIVENT TO [place] WILHELM.
--- NOTE | 2019-10-05 07:25 | NUR ---
AM NOTE... ASSUMED CARE OF PT APROX 0700, PT IS A&Ox3, ANXIOUS WITH CHILD LIKE BEHAVIOUR. PT WAS EXTUBATED ON 10/03, PT IS ON 6L NC WITH O2 SATS >92%. OTHER VS STABLE AT THIS TIME. PT WAS GIVEN BEDBATH AND GOTTEN UP INTO RECLINER CHAIR. L/S COARSE WITH INSP/EXP WHEEZES HEARD T/O. PT HAS VERY WEAK COUGH AND IS UNSABLE TO CLEAR SECRETIONS AT TIMES, PT'S GAG REFLEX IS WEAK WELL. PT IS SLEEPY AND MORE WEAK THAN HE WAS YESTERDAY PER THE RN THAT WORKED WITH HIM. PT WAS ON CLEAR LIQUID DIET BUT MADE NPO PER NURSING JUDGMENT AT THIS TIME. BT PRESENT AND HYPOACTIVE ABD IS SOFT AND NONTENDER TO PALP. LOZA IS PATENT AND DRAINING TO GRAVITY. CALL LIGHT IN REACH WILL CONTINUE TO MONITOR
--- NOTE | 2019-10-05 10:08 | NUR ---
pt jesse called for update brief update nursing getting him up to chair. pt nurse will call with update.
--- NOTE | 2019-10-05 10:27 | NUR ---
DR STARKS IN TO SEE PT, NO NEW ORDERS.
--- NOTE | 2019-10-05 13:54 | NUR ---
PT UPDATE... PT UP IN CHAIR SINCE THIS AM, HE HAS BEEN YELLING OUT AND HAS BEEN VERY ANXIOUS. PROVIDER AT THE BEDSIDE FOR ASSESSMENT. PT WAS TAKEN OFF OF NPO AND PLACE ON PUREE DIET, PT IS ABLE TO TOLERATE THIS SO FAR. HEPARIN GTT STOPPED AND PT STARTED LOVONOX. WILL CONTINUE TO MONITOR.
--- NOTE | 2019-10-05 18:36 | NUR ---
SHIFT SUMMARY... NO ACUTE NEGATIVE CHANGES NOTED THIS SHIFT. PT'S VS HAVE BEEN STABLE. HEPARIN GTT WAS D/C AND LOVONOX WAS STARTED. THE LIFT WAS USED TO GET THE PT INTO A RECLINER CHAIR, PT HAS BEEN IN THE CHAIR MOST OF THE SHIFT. PT HAS BEEN STARTED ON PUREE DIET, PT IS NOT ABLE TO TOLERATE THIN LIQUIDS AT THIS TIME, PT TOLERATES NECTAR THICK FLUIDS WELL. PT HAS BEEN ON ROOM AIR FOR THE LAST HALF OF THIS SHIFT WITH O2 SATS 90-94%. LOZA IS PATENT AND DRAINING CLEAR YELLOW URINE TO GRAVITY. PT HAS BEEN VERY AGITATED THIS AFTERNOON AND HAS BEEN TALKING ABOUT WANTING TO GO OUTSIDE, TAKE A WALK AND GO AMA. THE PT'S BROTHER TIM ASKED STAFF TO CALL HIM IF THE PT WANTS TO TRY AND GO AMA. HIS NUMBER IS IN THE CHART ON THE [facility] LIST. CALL LIGHT IN REACH WILL CONTINUE TO MONITOR UNTIL REPORT IS GIVEN TO ONCOMING RN.
--- NOTE | 2019-10-05 22:00 | NUR ---
ASSUMPTION OF CARE PT AWAKE IN ROOM, ORIENTED TO SELF, LOCATION, YEAR AND FOLLOWING DIRECTIONS. O2 SATURATIONS>90% ON RA, VSS. R FOOT WOUND DRESSING C/D/I, PLAN TO CLEAN AND CHANGE DRESSING THIS SHIFT. PT TOLERATING PUREED DIET, FREQUENTLY REQUESTING FOOD AND DRINK. LOZA IN PLACE DRAINING DARK YELLOW URINE. PT REMAINS VERY WEAK BUT STRENGTH IS INCREASING FROM PREVIOUS SHIFTS. PT EMOTIONALLY LABILE, POOR COPING SKILLS WHEN PERCEIVED NEEDS ARE NOT MET IMMEDIATELY. PT BECAME VERY ANGRY WITH THIS RN WHEN HE REQUESTED TRAZADONE AND INFORMED HIM THIS WAS DISCUSSED WITH HIS PROVIDER, NO ORDER FOR TRAZADONE AT THIS TIME. ZYPREXA AVAILABLE AND PROVIDED BY NATALIYA RN, PT THEN STARTED THRASHING AROUND IN BED, THREW LEGS OVER SIDE OF BED AND SAID HE WAS LEAVING, PT UNABLE TO GET SELF OUT OF BED, PT CURSING AND YELLING AT STAFF, UNABLE TO REDIRECT/CONSOLE PT, PRECEDEX INITIATED PER DR JOHNSON PROGRESS NOTES.
--- NOTE | 2019-10-06 01:00 | NUR ---
MIDSHIFT ASSESSMENT TO PTS ROOM FOR Q6 CBG, WOUND CHANGE AND ASSESSMENTS. PT REPORTS NEEDING TO HAVE BM, PT REFUSED BEDPAN, STS WANTS TO GET UP TO TOILET, EDUCATED PT ON SAFETY ISSUES RELATED TO GETTING OUT OF BED, PT STARTED CURSING AT THIS NURSE AND REFUSED BED WRAY AND ATTENDS.
--- NOTE | 2019-10-06 01:30 | NUR ---
PT YELLING "HELP" FROM ROOM, PT HAD THROWN HIS CALL LIGHT/REMOTE FROM BED, STS WANTS SOMEONE TO COME IN AND TURN TELEVISION OFF.
--- NOTE | 2019-10-06 02:42 | NUR ---
IN PTS ROOM FOR REPOSITIONING, PT HAD REMOVED DRESSING TO R FOOT WOUND AND TAKEN OFF NASAL CANULA. DRESSING REPLACED, ATTEMPTED TO PUT NASAL CANULA IN PLACE, PT REFUSED NASAL CANULA, CURSING AT STAFF. PT CURRENTLY ON RA, O2 SATURATIONS 92-94%, WILL CONTINUE TO MONITOR PT HAS Hx OF DECREASED O2 SATS WHILE SLEEPING.
[2019-10-06 06:01] LABS: Bun/Creatinine Ratio 21.1 (12.0-20.0); Calcium, Blood 8.2 mg/dL (8.5-10.1); Creatinine, Blood 1.33 mg/dL (0.60-1.20); Potassium, Blood 3.3 mmol/L (3.5-5.5)
--- NOTE | 2019-10-06 06:44 | NUR ---
SHIFT SUMMARY PT AWAKE FOR MOST OF NIGHT, BEHAVORIAL ISSUES CONTINUE (SEE PREVIOUS NOTES), PRECEDEX STARTED @ APPROX 2130 (SEE FLOWSHEET), CURRENTLY INFUSING @ 0.5mcg/kg/hr, VSS. PT TOLERATING PUREED DIET, LOZA REMAINS IN PLACE, DRAINING DARK YELLOW URINE. PT REMAINS WEAK. PTS BROTHER TO ROOM THIS AM, PT VERY LABILE AND EASILY AGITATED, EXPRESSES DESIRE TO GO HOME. BROTHER SUPPORTIVE, ENCOURAGES PT TO STAY IN HOSPITAL, ASSISTS PT WITH EATING/DRINKING AND IS VERY TOLERANT AND CALM WITH PT.
--- NOTE | 2019-10-06 11:40 | NUR ---
PT WAS LYING IN BED AND WANTING OUT AT TIME OF FIRST CONTACT. PT IS IRRITABLE AND DEMANDING BUT BROTHER IS IN ROOM AND ASSISTING TO SET LIMITS. PT IS C/O SOME CHEST PAIN AND REQUESTING TYLENOL. SEE EMAR. PT ON PRECEDEX GTT. PT WAS ASSISTED UP TO CHAIR WITH RN AND P.T. ASSISTANCE AND WAS ABLE TO BEAR WEIGHT WIT BALANCE AND LINE ASSISTANCE. THIS WAS AT ABOUT 1000. PT IS NOW EXPRESSING PLEASE AND THANK YOU BUT REMAINS.
--- NOTE | 2019-10-06 14:23 | NUR ---
PT IS INCREASINGLY COOP. WITH CARE USING PLEASE AND THANK YOU. PT CONT TO MUMBLE AND DIFF TO UNDERSTAND BUT IS CALM. WILL CONSIDER PRECEDEX GTT TITRATION.
--- NOTE | 2019-10-06 16:36 | NUR ---
NEW PIC'S OF R FOOT TAKEN AND WOUND SITE CLEANED, REPACKED WITH MOIST GAUZE, 4X4 COVERING AND TORSTEN BANDAGE IN FIGURE 8 TO SECURE. PT TOLERATED WELL. MILD CHEST PAIN C/O AND REFUSED TYLENOL AT THIS POINT. PT IS CALM, COOP, AND CURTIOUS AT THIS POINT. PT IS WIDE AWAKE AND WILL LEAVE PRECEDEX GTT AT 0.5 FOR NOW.
[2019-10-06 16:44] LABS: Magnesium, Blood 2.2 mg/dL (1.6-2.4); Potassium, Blood 3.8 mmol/L (3.5-5.5)
--- NOTE | 2019-10-06 18:41 | NUR ---
PT HAS BEEN AWAKE MOST OF PM. AT ONE POINT PT WAS YELLING AND DEMANDING NOTHING IN SPECIFIC AND WAS TOLD THAT THIS WAS UNEXCEPTABLE AND HE COULD STOP YELLING. PT CALMED DOWN TO CONVERSATION STATUS AND STOPPED YELLING. PRECEDEX GTT HAS REMAINED ON 0.5 MCG TODAY W/O TITRATION. VS NOTED, I/O NOTED, PT CONT TO BE SUPERVISED EATING OR WOULD PROBABLY GULP FOOD AND DRINK.
--- NOTE | 2019-10-06 21:44 | NUR ---
ASSUMED CARE OF PT, REPORT RCV'D FROM [facility]. PT ALERT/ORIENTED, COOPERATIVE WITH CARE. PT SITTING ON BEDSIDE COMMODE, ABLE TO ASSIST WITH STANDING, PIVOT TO BED WITH 1-2 PERSON ASSIST. PRECEDEX @ 0.5 MCG/KG/HR. PT ABLE TO TAKE MEDS WHOLE IN APPLESAUCE, HAS SIPS OF LIQIUD WITH ASSISTANCE BUT APPEARS SOB WHEN DRINKING. PT HAS NONPRODUCTIVE STRONG COUGH WITH AUDIBLE WHEEZES. SATS 96% ON RA. CLEAR BILATERAL UPPER, COARSE BILATERAL LOWER. BP STABLE. HYPOACTIVE BT, NO PAIN WITH PALPATION. TEMP LOZA PATENT AND DRAINING. DRESSING TO RIGHT FOOT C/D/I. SEE FULL SHIFT ASSESSMENT.
[2019-10-07 03:39] LABS: BASOPHILS ABSOLUTE AUTO 0.05 K/mm3 (0.00-0.23); BASOPHILS PERCENT AUTO 1 % (0-2); EOSINOPHILS ABSOLUTE AUTO 0.16 K/mm3 (0.00-0.68); EOSINOPHILS PERCENT AUTO 2 % (0-6); Hematocrit 39.1 % (37.0-53.0); Hemoglobin 12.6 g/dL (13.5-17.5); IMMATURE GRAN ABSOLUTE AUTO 0.04 K/mm3 (0.00-0.10); IMMATURE GRAN PERCENT AUTO 0 % (0-1); LYMPHOCYTES ABSOLUTE AUTO 1.58 K/mm3 (0.84-5.20); LYMPHOCYTES PERCENT AUTO 16 % (21-46); MONOCYTES ABSOLUTE AUTO 0.91 K/mm3 (0.16-1.47); MONOCYTES PERCENT AUTO 10 % (4-13); Mean Corpuscular HGB 31.7 pg (26.0-34.0); Mean Corpuscular HGB Conc 32.2 g/dL (31.5-36.5); Mean Corpuscular Volume 98 fL (80-100); Mean Platelet Volume 9.8 fL (9.1-12.4); NEUTROPHILS ABSOLUTE AUTO 6.87 K/mm3 (1.96-9.15); NEUTROPHILS PERCENT AUTO 72 % (41-73); Platelet Count 292 K/mm3 (150-400); RDW Coefficient Variation 12.3 % (11.7-14.2); RDW Standard Deviation 44.7 fL (35.1-46.3); Red Blood Cell Count 3.98 M/mm3 (4.30-5.90); White Blood Cell Count 9.61 K/mm3 (4.00-11.30)
[2019-10-07 03:57] LABS: Bun/Creatinine Ratio 20.3 (12.0-20.0); Calcium, Blood 8.4 mg/dL (8.5-10.1); Creatinine, Blood 1.33 mg/dL (0.60-1.20); Magnesium, Blood 2.3 mg/dL (1.6-2.4); Phosphorus, Blood 2.8 mg/dL (2.5-4.9); Potassium, Blood 3.8 mmol/L (3.5-5.5)
--- NOTE | 2019-10-07 06:01 | NUR ---
SHIFT SUMMARY PT ALERT, ORIENTED AND COOPERATIVE WITH CARE T/O SHIFT. PRECEDEX GTT INFUSING AT 0.6 MCG/KG/HR. PT ABLE TO APPROPRIATELY USE CALL LIGHT AND EXPRESS HIS NEEDS. RHYTHM SR WITH PAC'S, PROLONGED QT. VSS. WILL REPORT TO DAYSHIFT NURSE.
--- NOTE | 2019-10-07 09:46 | NUR ---
PT IS A/O, FOLLOWING COMMANDS AND ABLE TO MAKE HIS REQUESTS KNOW. PT WAS INITIALLY DEMANDING AND IRRITATED BUT SPOKE STERNLY TO PT AND SET BOUNDERIES AND PT HAS RESPONDED WELL. VSS. PRECEDEX GTT AT 0.6 AND WILL EVALUATE FOR TITRATING.
--- NOTE | 2019-10-07 13:39 | NUR ---
PT GROIN AND SCROTUM QUITE RED AFTER BATH. SITE CLEANED AND NYSTATIN POWDER APPLIED. R FOOT WOUND CLEANED AND PACKING APPLIED. PT CURRENTLY REQUESTING TO GO OUTSIDE AND SMOKE. WILL FOLLOW. HAS BEEN OFF PRECEDEX PER SENCE 1130 DR TAMIKA العراقي.
--- NOTE | 2019-10-07 16:55 | NUR ---
PT C/O PENIS PAIN. CATH WAS CLEANED WELL AND LUBRICATED. WHERE IS NO PULLING OR VISIBLE IRRITATION. GENERAL PENIS SWELLING IS DECREASED THIS SHIFT. PT MED FOR CHEST AND PENIS PAIN ALSO GIVE.
[2019-10-07 17:37] LABS: Vancomycin, Trough 17.1 ug/mL (5.0-10.0)
--- NOTE | 2019-10-07 18:48 | NUR ---
PT DEMANDING TO GET UP TO CHAIR "NOW". PT WAS TOLD WE WOULD BE IN [place]. BOUNDERIES GIVEN AND PT SOME WHAT READY TO MANINDER. WALKED 3-4 STEPS TO CHAIR AND BEGAN TO EAT SUPPER CALMLY. PT TAB ALARM PLACE FOR PT SAFEY HE REMAINS SOMWHAT IMPULSIVE. LESS C/O CATH PAIN BUT HAS PULLED AT LEAST 2 TIMES ON CATH AND MAY BE THE SOURSE OF THE PAIN. VSS, HR IS SL ELEVATED AND POSS. DUE TO PRECEDEX GTT BEING OFF. PT INSTRUCTED TO GO SLOW WITH PO LIQUIDS.
--- NOTE | 2019-10-07 20:56 | NUR ---
ASSUMED CARE OF PT, REPORT RCV'D FROM [facility] PARD[facility]. PT ALERT AND ORIENTED, PT IRRITABLE AND IMPULSIVE TRYING TO GET UP OUT OF CHAIR. CHAIR ALARM ON, PT REMINDED TO WAIT FOR ASSISTANCE BEFORE GETTING UP. PT ANGRY ASKING FOR FOOD TO BE DELIVERED AND FOR THIS NURSE TO GET HIM FOOD FROM THE VENDING MACHINE. PT REMINDED THAT HE HAS EATING RESTRICTIONS TO PREVENT ASPIRATION. PT UNRECEPTIVE AND CONTINUES TO TRY TO GET OUT OF BED TO GET HIMSELF A DRINK. REMOVED DRINKS FROM ROOM TO DISCOURAGE PT FROM TRYING TO GET UP. PT CURSING AND ATTEMPTED TO GRAB THIS NURSE WHILE EXITING PT'S ROOM. PT STANDS UP WITHOUT HELP SAYING THAT HE WANTS TO GO TO BED, ASSISTED PT TO EDGE OF BED, PT REFUSING TO LAY BACK IN BED SAYING THAT HE WANTS HIS SLEEPING PILL. PT FINALLY AGREES TO LAY BACK IN BED SO THAT HE CAN GET HIS SLEEPING PILLS. BED ALARM ON. PT REFUSING OTHER MEDICATIONS, ONLY TOOK TRAZADONE WITH APPLESAUCE. PT'S FRIEND HERE STATING THAT PT IS CALLING CONTINUOUSLY REQUESTING TO BE PICKED UP. HAD CONVERSATION WITH FRIEND AND PT, UPDATED ON PT'S STATUS AND PLAN OF CARE. PT'S VSS AT THIS TIME. SEE FULL SHIFT ASSESSMENT
--- NOTE | 2019-10-07 22:59 | NUR ---
PT CONTINUES TO YELL FROM ROOM, PT INSISTING HE WANTS TO GET OUT OF BED SO HE CAN GET SOMETHING TO EAT AND DRINK. PT TOLD THAT HE CANNOT GET OUT OF BED AT THIS TIME IT IS UNSAFE, PT WEAK AND WAS GIVEN SLEEPING MEDICATIONS. PT VERBALLY AGGRESSIVE AND CONTINUES TO YELL AND CURSE TRYING TO WEAKLY GET OUT OF BED. BED ALARM ON. CURTAIN OPEN.
--- NOTE | 2019-10-07 23:45 | NUR ---
PT CONTINUES TO ATTEMPT UNSAFELY AMBULATING. PT ABLE TO SCOOT TO END OF BED AND TRY AND GET UP INDEPENDENTLY, WHEN STAFF ATTEMPTED TO HELP PT SCOOT BACK IN BED PT BECAME AGGRESSIVE AND REFUSED TO COOPERATE WITH CARE. DECISION TO PLACE PT IN DELONTE VEST TO DISCOURAGE UNSAFE AMBULATION. DISCUSSED REASON FOR DELONTE, PT STATES HE IS "LEAVING" AND THAT HIS FRIENDS ARE "ON THEIR WAY". PT REMINDED THAT VISITING HOURS WILL BEGIN AT 0700. PT PLACED IN DELONTE, BOOSTED IN BED, GIVEN WARM BLANKETS. BED ALARM REMAINS ON.
[2019-10-08 03:56] LABS: BASOPHILS ABSOLUTE AUTO 0.04 K/mm3 (0.00-0.23); BASOPHILS PERCENT AUTO 0 % (0-2); EOSINOPHILS ABSOLUTE AUTO 0.16 K/mm3 (0.00-0.68); EOSINOPHILS PERCENT AUTO 1 % (0-6); Hematocrit 37.1 % (37.0-53.0); Hemoglobin 11.8 g/dL (13.5-17.5); IMMATURE GRAN ABSOLUTE AUTO 0.04 K/mm3 (0.00-0.10); IMMATURE GRAN PERCENT AUTO 0 % (0-1); LYMPHOCYTES ABSOLUTE AUTO 1.44 K/mm3 (0.84-5.20); LYMPHOCYTES PERCENT AUTO 13 % (21-46); MONOCYTES ABSOLUTE AUTO 1.01 K/mm3 (0.16-1.47); MONOCYTES PERCENT AUTO 9 % (4-13); Mean Corpuscular HGB 31.4 pg (26.0-34.0); Mean Corpuscular HGB Conc 31.8 g/dL (31.5-36.5); Mean Corpuscular Volume 99 fL (80-100); Mean Platelet Volume 9.6 fL (9.1-12.4); NEUTROPHILS ABSOLUTE AUTO 8.65 K/mm3 (1.96-9.15); NEUTROPHILS PERCENT AUTO 76 % (41-73); Platelet Count 346 K/mm3 (150-400); RDW Coefficient Variation 12.3 % (11.7-14.2); RDW Standard Deviation 44.8 fL (35.1-46.3); Red Blood Cell Count 3.76 M/mm3 (4.30-5.90); White Blood Cell Count 11.34 K/mm3 (4.00-11.30)
[2019-10-08 04:11] LABS: Anion Gap 3 mmol/L (6-16); Blood Urea Nitrogen 25 mg/dL (8-24); Bun/Creatinine Ratio 19.8 (12.0-20.0); CO2, Blood 34 mmol/L (21-32); Calcium, Blood 8.6 mg/dL (8.5-10.1); Chloride, Blood 104 mmol/L (98-108); Creatinine, Blood 1.26 mg/dL (0.60-1.20); Glomerular Filtration Rate >60 (60-); Glucose, Blood 164 mg/dL (70-99); Magnesium, Blood 2.2 mg/dL (1.6-2.4); Phosphorus, Blood 3.2 mg/dL (2.5-4.9); Potassium, Blood 3.7 mmol/L (3.5-5.5); Sodium, Blood 141 mmol/L (136-145)
--- NOTE | 2019-10-08 06:25 | NUR ---
SHIFT SUMMARY PT IRRITABLE WITH LABILE AND IMPULSIVE BEHAVIOR. PT REQUIRED MUCH REDIRECTIONS AND BEHAVIORAL REMINDERS. PT REMAINS IN DELONTE VEST WITH TAB ALARM ON. PT OOB TO CHAIR WITH MAXIMUM ASSISTANCE. PT REQUIRED 3L O2 WHILE SLEEPING TO MAINTAIN SAT>90%. AUDIBLE WHEEZING, PT ENCOURAGED TO COUGH, PT REFUSES AT THIS TIME. 900 ML DARK CLOUDY KOMAL URINE. VSS T/O SHIFT. NS TKO. PLEASE SEE PREVIOUS NOTES FROM THIS SHIFT. WILL REPORT TO DAYSHIFT NURSE.
--- NOTE | 2019-10-08 08:39 | NUR ---
ASSESSMENT- PT AWAKE, ALERT, SITTING UP IN CHAIR. ABLE TO ANSWER QUESTIONS, ORIENTED, IRRITABLE WITH QUESTIONS, CURSING. TOLERABLE WITH CARES. REFUSES ORAL CARE. INSTRUCTED ON EATING, IRRITABLE WITH ANY RULES. ASSISTED WITH BREAKFAST, ONLY GIVEN SMALL AMOUNTS AT A TIME, TRIES TO EAT VERY FAST. NO COUGHING OR CHOKING. LUNGS COARSE RHONCHI T/O. APICAL REGULAR WITH MURMER. BP STABLE. ABLE TO TAKE PO MEDS WITH APPLESAUSE. IMPULSIVE, TAB ALARM ON AND VEST DELONTE FOR SAFETY. CALL LIGHT IN REACH. NO N/V ABDOMEN LARGE. UO VIA LOZA. TWO POWER GLIDES DAVID INTACT. RIGHT FOOT DRESSING CHANGED-PACKED LOOSELY WITH IODOFORM GAUZE, TOLERATED WELL. IRRITABLE WHEN QUESTIONED REGARDING PAIN-DID NOT ANSWER. WATCHING TV. STATES IS LEAVING HOSPITAL TODAY. EXPLAINED PLAN OF CARE
--- NOTE | 2019-10-08 10:02 | NUR ---
DR. MONTERROSO HERE-UPDATED. PT REQUESTING TO GO TO BED, USED CALL LIGHT. TWO ASSIST TO TRANSFER, UNSTEADY ON FEET, FALL RISK. DOZING, QUIET
--- NOTE | 2019-10-08 13:17 | NUR ---
UP TO CHAIR AGAIN AND THEN ASSIST BACK TO BED AFTER LUNCH. WEAKNESS STANDING, NEEDS TWO ASSIST FOR SAFETY. ABLE TO TRANSFER TO BED. DELONTE VEST ON-FALL RISK, DOESN'T CALL FOR ASSISTANCE AND IMPULSIVE AND WEAK. BED ALARM ON. ATE LUNCH WITH SPEECH THERAPIST WHILE UP IN CHAIR, DID WELL. BLOOD SUGAR ELEVATED-COVERED PER ORDERS. BATH DONE, ARGUMENTATIVE BUT ALLOWS CARES. PERIAREA VERY RED AND DARKENED, SKIN PEELING. [place] ON. HANDS, FEET WITH THICKENED CALLOUSED SKIN. WOUND RIGHT FOOT DRESSING INTACT WITH TORSTEN WRAP
--- NOTE | 2019-10-08 16:12 | NUR ---
PT STATES WANTS TO GO HOME, EXPLAINED THAT HE IS NOT DISCHARGED, WOULD HAVE TO LEAVE AMA. PT STATES WANTS TO LEAVE BUT CALLED FRIENDS AND DOES NOT HAVE A RIDE. IRRITATED, ANGRY WITH DISCUSSIONS. EXPLAINED PLAN OF CARE, TALKED WITH PT'S FRIEND ON PHONE. PT UP IN CHAIR NOW, TALKING ON PHONE, WATCHING TV. CALM NOW.
--- NOTE | 2019-10-08 16:44 | NUR ---
UP TO AMBULATE IN ROOM WITH PHYSICAL THERAPIST AND RN. TOLERATED WELL, WALKED ACROSS ROOM TO CHAIR, TOOK REST PERIOD, THEN BACK TO RECLINER. USED GAIT BELT AND WALKER. STATES SOME SOB AFTER MOVEMENT, SATURATIONS STABLE. COOPERATIVE WITH CARES. STATES FRIEND WILL BRING HIM A SMOOTHIE. NO TALK OF LEAVING AGAIN.
--- NOTE | 2019-10-08 18:21 | NUR ---
PT WITH POOR APPETITE FOR DINNER. GOOD CONVERSATION WITH PT REGARDING HIS [facility] SERV[facility] TIME. QUIET, COOPERATIVE. REPORT TO YAHIR WILHELM. PT TRANSFERRED TO 351 IN BED. DELONTE ON, FALL RISK. DOING BETTER WITH DRINKING FLUIDS, TAKING TIME TO SWALLOW, ASPIRATION PRECAUTIONS.
--- NOTE | 2019-10-08 18:29 | NUR ---
SHIFT SUMMARY PT ARRIVED TO THE FLOOR LATE THIS SHIFT VIA BED. PT ORIENTED TO THE FLOOR. ICE PROVIDED PER PT REQUEST. PT TRANSFERED VIA SLIDE. PT ALERT, PT VERY DIFFICULT TO UNDERSTAND.
--- NOTE | 2019-10-08 19:40 | NUR ---
Patient insisting on leaving. He has a young woman in the room who he has called to take him home. Talked about the danger of his leaving while he is so weak, is still on IV antibiotics, and the need to stay a few more days to be safely monitored on tele after so recently coding in [facility]. Patient refused tele, and it was obvious his friend was shocked to hear of the coarse of his hospitalization. patient agreed to stay overnight "for the time being" while I call the hospitalist.
--- NOTE | 2019-10-09 06:06 | NUR ---
ZONING ENGINEER SUMMARY Patient awake most of night. very confused, insisting on his friends taking him "home". Patient yelling out for help, pulling on pastor leads. Pastor vest kept on all night, At time of last restraint assessment, patient had diffuse raised red rash over his back, arms, neck. abd. thighs and mitchell area. although Patient stated he didn't itch. Rash appears like an allergic reaction to something. Only new meds introduced overnight were IV ativan and 10/325mg Lortab. calls placed to hospitalist. awaiting return calls
--- NOTE | 2019-10-09 08:10 | NUR ---
Patient allowed for me to check his cbg one time, it took three strips before the nurse said to not worry about it, pt's finger had caoulses, hard to get the right amount of blood out. Pt was not willing to be poked a second time.
[2019-10-09 09:05] LABS: BASOPHILS ABSOLUTE AUTO 0.06 K/mm3 (0.00-0.23); BASOPHILS PERCENT AUTO 0 % (0-2); EOSINOPHILS ABSOLUTE AUTO 0.24 K/mm3 (0.00-0.68); EOSINOPHILS PERCENT AUTO 2 % (0-6); Hematocrit 39.7 % (37.0-53.0); Hemoglobin 12.7 g/dL (13.5-17.5); IMMATURE GRAN ABSOLUTE AUTO 0.04 K/mm3 (0.00-0.10); IMMATURE GRAN PERCENT AUTO 0 % (0-1); LYMPHOCYTES ABSOLUTE AUTO 1.33 K/mm3 (0.84-5.20); LYMPHOCYTES PERCENT AUTO 10 % (21-46); MONOCYTES ABSOLUTE AUTO 0.71 K/mm3 (0.16-1.47); MONOCYTES PERCENT AUTO 5 % (4-13); Mean Corpuscular HGB 31.3 pg (26.0-34.0); Mean Corpuscular Volume 98 fL (80-100); Mean Platelet Volume 9.3 fL (9.1-12.4); NEUTROPHILS ABSOLUTE AUTO 11.27 K/mm3 (1.96-9.15); NEUTROPHILS PERCENT AUTO 83 % (41-73); Platelet Count 391 K/mm3 (150-400); RDW Coefficient Variation 12.1 % (11.7-14.2); RDW Standard Deviation 43.8 fL (35.1-46.3); Red Blood Cell Count 4.06 M/mm3 (4.30-5.90); White Blood Cell Count 13.65 K/mm3 (4.00-11.30)
[2019-10-09 09:34] LABS: Albumin, Blood 2.3 g/dL (3.4-5.0); Albumin/Globulin Ratio 0.5 (0.8-1.8); Bilirubin, Total 0.3 mg/dL (0.1-1.0); Bun/Creatinine Ratio 18.6 (12.0-20.0); Calcium, Blood 8.6 mg/dL (8.5-10.1); Creatinine, Blood 1.29 mg/dL (0.60-1.20); Globulin, Blood 4.2 g/dL (2.2-4.0); Total Protein, Blood 6.5 g/dL (6.4-8.2)
[2019-10-09] MEDS ORDERED: [UNRECOGNIZED DRUG - OTHER] TOP (11:03)
[2019-10-09] MEDS ORDERED: CHLORHEXIDINE TOP (11:04)
--- NOTE | 2019-10-09 12:08 | NUR ---
@ ONSET OF SHIFT [phone] PATIENT IN POSY VEST RESTRAINT. HE IS YELLING OUT, ATTEMPTING TO GET OOB W/O ASSIST. NOC RN ATTEMPTING TO REDIRECT HOWEVER STATE SHE HAS BEEN UNSUCCESSFUL REQUIRING RESTRAINT D/T CONFUSION, UNSTEADY GAIT, HIGH FALL RISK.
--- NOTE | 2019-10-09 15:49 | NUR ---
SUMMARY PT WAS VERY IRRITABLE THIS AM, ATTEMPTING TO GET UP W/O ASSIST, YELLING INCOHERENTLY/GARBLED SPEECH, DIFFICULT TO REDIRECT. DELONTE VEST RESTRAINT IN PLACE, ON CAMERA MX. AM ZYREXA GIVEN w AM MEDS. PT ASSISTED TO CHAIR & TO BR. SM BM. SPOKE W PT R/T USE OF RESTRAINTS & SAFETY, NEED TO CALL FOR ASSIST R/T UNSTEADY GAIT. HE WAS ABLE TO CONTRACT FOR SAFETY & CONTINUING HOSP TX. DR MONTERROSO ASSESS EXTENSIVE BODY RASH, STATE ALLERGIC REACTION, ORDER IV SOLUMEDROL 125MG & BENADRYL 50MG, GIVEN. ORDER D/C TELE & LOZA CATH. STATE RN CARE MANAGEMENT ATTEMPTING TO ARRANGE TRANSFER TO [facility]IV[facility] WHEN APPROP. PT SEEMS SATISFIED w THIS PLAN @ THIS TIME. VSS.
--- NOTE | 2019-10-09 19:29 | NUR ---
CITY PLANNING AIDE ASSIST PT TO SHOWER & SHAVE. AFTER HE BECOMES VERY DEMANDING, STATING HE IS LEAVING HOSP, ATTEMPTING UP W/O ASSIST. CAMERA MX CALL MULT X'S. ATTEMPTS TO REDIRECT PT UNSUCCESSFUL. TIE PULLER NOTIFIED, CALL DR MONTERROSO, ORDER GIVEN FOR RESTRAINTS R/T POTENTIAL HARM TO SELF (HIGH FALL RISK). SECURITY REQUIRED TO PLACE RESTRAINT. PT IS ABLE TO CALM SOMEWHAT. PRN ZYREXAZYDIS 5MG GIVEN PER PT REQUEST. PRN NORCO GIVEN FOR PAIN. REPORT TO NOC RN.
[2019-10-10 06:04] LABS: BASOPHILS ABSOLUTE AUTO 0.02 K/mm3 (0.00-0.23); BASOPHILS PERCENT AUTO 0 % (0-2); EOSINOPHILS PERCENT AUTO 0 % (0-6); Hematocrit 35.5 % (37.0-53.0); Hemoglobin 11.4 g/dL (13.5-17.5); IMMATURE GRAN ABSOLUTE AUTO 0.05 K/mm3 (0.00-0.10); IMMATURE GRAN PERCENT AUTO 0 % (0-1); LYMPHOCYTES ABSOLUTE AUTO 0.93 K/mm3 (0.84-5.20); LYMPHOCYTES PERCENT AUTO 8 % (21-46); MONOCYTES ABSOLUTE AUTO 0.62 K/mm3 (0.16-1.47); MONOCYTES PERCENT AUTO 5 % (4-13); Mean Corpuscular HGB Conc 32.1 g/dL (31.5-36.5); Mean Corpuscular Volume 97 fL (80-100); Mean Platelet Volume 9.4 fL (9.1-12.4); NEUTROPHILS ABSOLUTE AUTO 10.71 K/mm3 (1.96-9.15); NEUTROPHILS PERCENT AUTO 87 % (41-73); Platelet Count 366 K/mm3 (150-400); RDW Coefficient Variation 12.1 % (11.7-14.2); RDW Standard Deviation 42.9 fL (35.1-46.3); Red Blood Cell Count 3.68 M/mm3 (4.30-5.90); White Blood Cell Count 12.33 K/mm3 (4.00-11.30)
[2019-10-10 06:16] LABS: Alanine Aminotransfer (ALT/SGP 22 U/L (12-78); Albumin, Blood 2.2 g/dL (3.4-5.0); Albumin/Globulin Ratio 0.6 (0.8-1.8); Alk Phos 48 U/L (50-136); Anion Gap 6 mmol/L (6-16); Aspartate Aminotrans (AST/SGOT 14 U/L (12-37); Bilirubin, Total 0.2 mg/dL (0.1-1.0); Blood Urea Nitrogen 27 mg/dL (8-24); Bun/Creatinine Ratio 23.1 (12.0-20.0); CO2, Blood 31 mmol/L (21-32); Calcium, Blood 8.4 mg/dL (8.5-10.1); Chloride, Blood 99 mmol/L (98-108); Creatinine, Blood 1.17 mg/dL (0.60-1.20); Globulin, Blood 3.9 g/dL (2.2-4.0); Glomerular Filtration Rate >60 (60-); Glucose, Blood 273 mg/dL (70-99); Potassium, Blood 4.6 mmol/L (3.5-5.5); Sodium, Blood 136 mmol/L (136-145); Total Protein, Blood 6.1 g/dL (6.4-8.2)
--- NOTE | 2019-10-10 16:43 | NUR ---
SUMMARY PT WAS IN DELONTE RESTRAINT THIS AM D/T CONTINUING ATTEMPTS OOB W/O ASSIST, HIGH FALL RISK/UNSTEADY GAIT. CAMERA MX CONTINUES. EXPLAINED NEED FOR ASSIST, NEED FOR SAFETY, ALLOWED HIM TO SIT UP IN CHAIR & MONITORED FOR A PERIOD, PT WAS REDIRECTABLE, RESTRAINT D/C'D. HE CONTINUES FRUSTRATED/IRRITABLE R/T DESIRE TO GO HOME, LEAVE AMA. DR MONTERROSO ORDER 2 MD HOLD, MULTIMEDIA DEVELOPER IN TO EXPLAIN HOLD TO PT. ST IN TO ASSESS SWALLOW, DIET ADVANCED TO [facility] SOFT ADA w ASP PRECAUTIONS. BODY RASH CONTINUES HOWEVER SOMEWHAT IMPROVED, MEDICATED CREAM APPLIED. WOUND CARE PROVIDED BOTTOM R FOOT/ORDER. BLE EDEMA CONTINUES, MEENA HOSE PLACED. PT CONTINUES IRRITATED HE IS UNABLE TO SMOKE, NICOTINE PATCH ORDERED. BLOOD SUGARS ELEVATED 200-300, DR TRICIA BAÑUELOS. VSS.
--- NOTE | 2019-10-10 23:28 | NUR ---
Patient much more cooperative with care so far tonight. Patient has primarily got pain mid chest from area where CPR was performed. In addition, Patient appears to have increased work of breathing after minimal activity. (ambulating to bathroom). Patient agreed to allow respiratory give him a breathing treatment Rash over groin, axillary and shoulder areas, back and stomach do look a lot better than yesterday also. Patient states skin has been feeling better since kenalog being applied BID.
--- NOTE | 2019-10-11 01:40 | NUR ---
steward/stewardess night summary Patient has been much more cooperative with staff tonight than previous. Out of restraints. Very small aggressive outbursts when he can't get his way, and then he immediately straightens out. Rash around torso, groin, abd, arms and back improving.
--- NOTE | 2019-10-11 02:28 | NUR ---
0228 ASSUMPTION OF CARE RECEIVED REPORT FROM CHOCO LONG. APPEARS TO BE RESTING. NO ACUTE NEEDS AT THIS TIME. BED REMAINS IN LOWEST POSITION. CALL LIGHT WITHIN REACH. [facility].
[2019-10-11 05:09] LABS: BASOPHILS ABSOLUTE AUTO 0.05 K/mm3 (0.00-0.23); BASOPHILS PERCENT AUTO 1 % (0-2); EOSINOPHILS ABSOLUTE AUTO 0.23 K/mm3 (0.00-0.68); EOSINOPHILS PERCENT AUTO 2 % (0-6); Hematocrit 36.5 % (37.0-53.0); Hemoglobin 11.8 g/dL (13.5-17.5); IMMATURE GRAN ABSOLUTE AUTO 0.05 K/mm3 (0.00-0.10); IMMATURE GRAN PERCENT AUTO 1 % (0-1); LYMPHOCYTES ABSOLUTE AUTO 1.75 K/mm3 (0.84-5.20); LYMPHOCYTES PERCENT AUTO 16 % (21-46); MONOCYTES ABSOLUTE AUTO 0.86 K/mm3 (0.16-1.47); MONOCYTES PERCENT AUTO 8 % (4-13); Mean Corpuscular HGB 31.7 pg (26.0-34.0); Mean Corpuscular HGB Conc 32.3 g/dL (31.5-36.5); Mean Corpuscular Volume 98 fL (80-100); Mean Platelet Volume 9.2 fL (9.1-12.4); NEUTROPHILS ABSOLUTE AUTO 7.97 K/mm3 (1.96-9.15); NEUTROPHILS PERCENT AUTO 73 % (41-73); Platelet Count 402 K/mm3 (150-400); RDW Coefficient Variation 12.2 % (11.7-14.2); RDW Standard Deviation 44.2 fL (35.1-46.3); Red Blood Cell Count 3.72 M/mm3 (4.30-5.90); White Blood Cell Count 10.91 K/mm3 (4.00-11.30)
--- NOTE | 2019-10-11 05:37 | NUR ---
SHIFT SUMMARY ALERT, ABLE TO MAKE NEEDS KNOWN. COOPERATIVE AND PLEASANT WITH CARE MOST OF THE TIME. C/O PAIN/DISCOMFORT TO R CHEST WALL R/T CPR. HAS BEEN GETTING UP INDEPENDENTLY /c FWW AND USES URINAL @ BEDSIDE. MULTIPLE REQUESTS FROM STAFF T/O SHIFT. AWAITING PLACEMENT. APPEARED TO REST OFF AND ON. VSS/AFEBRILE. NO ACUTE CHANGES NOTED. BED REAMINS IN LOWEST POSITION. CALL LIGHT AND BELONGINGS WITHIN REACH. WCTM. REPORT TO ONCOMING RN.
[2019-10-11 05:46] LABS: Albumin, Blood 2.5 g/dL (3.4-5.0); Albumin/Globulin Ratio 0.6 (0.8-1.8); Bilirubin, Total 0.2 mg/dL (0.1-1.0); Bun/Creatinine Ratio 26.3 (12.0-20.0); Calcium, Blood 8.7 mg/dL (8.5-10.1); Creatinine, Blood 1.33 mg/dL (0.60-1.20); Globulin, Blood 4.4 g/dL (2.2-4.0); Potassium, Blood 4.7 mmol/L (3.5-5.5); Total Protein, Blood 6.9 g/dL (6.4-8.2)
--- NOTE | 2019-10-11 17:35 | NUR ---
SHIFT SUMMARY PT A/O X 4. PT AMBULATING WITH FWW AND APPEARS TO HAVE STEADY GAIT THIS DAY. PT REQUESTS TO BE DISCHARGED REPORTS FEELING BETTER. MD IS AGREEABLE TO DISCHARGE THE PT. AWAITING DISCHARGE ORDERS TO BE ENTERED.
--- NOTE | 2019-10-11 18:04 | NUR ---
DISCHARGE SUMMARY IV ACCESS REMOVED. NO ACTIVE BLEEDING NOTED. ALL PAPERWORK PROVIDED TO PT IN WRITING AND VERBALLY, PT REPORTS UNDERSTANDING OF ALL INSTRUCTIONS.
[2019-10-11] MEDS ORDERED: AMIODARONE HCL200 M1 PO (18:15)
[2019-10-11] MEDS ORDERED: ASPI81CH PO (18:15)
[2019-10-11] MEDS ORDERED: LISI5 PO (18:16)
[2019-10-11] MEDS ORDERED: FURO40 PO (18:16)
[2019-10-11] MEDS ORDERED: METO50ER PO (18:17)
[2019-10-11] MEDS ORDERED: NICOTINE1 EAC1 TOP (18:17)
[2019-10-11] MEDS ORDERED: OLAN5 PO (18:18)
--- NOTE | 2019-10-11 18:31 | NUR ---
PT IV ACCESS REMOVED. PT WHEELED BY WC TO FRONT DOOR. PT STATES WILL BE TAKING CAB HOME. PT HAS ALL DOCUMENTION AND INSTRUCTIONS VERBALLY AND IN WRITING. NO FURTHER QUESTIONS AT TIME OF DISCHARGE.
== END 2019-10-11 18:24 | disposition home or self-care (01) | DRG 291 ==
LOC: ER 20:40 → ICUW 23:20 → PCU 23:20 → ICUW 09-26 10:43 → MEDS 10-08 18:03
PROVIDERS: Emergency Medicine; Internal Medicine; Internal Medicine Critical Care Medicine; Internal Medicine Pulmonary Disease; Nurse Practitioner Acute Care; Pharmacist; ADMIT Internal Medicine
PROC: 0BH17EZ Insertion of Endotracheal Airway into Trachea, Via Natural or Artificial Opening (ICD-10-PCS; principal; 2019-09-26)
PROC: 5A1955Z Respiratory Ventilation, Greater than 96 Consecutive Hours (ICD-10-PCS; 2019-09-26)
PROC: 3E033XZ Introduction of Vasopressor into Peripheral Vein, Percutaneous Approach (ICD-10-PCS; 2019-09-26)
PROC: 02HV33Z Insertion of Infusion Device into Superior Vena Cava, Percutaneous Approach (ICD-10-PCS; 2019-09-26)
DX: I11.0 Hypertensive heart disease with heart failure (principal); A41.02 Sepsis due to Methicillin resistant Staphylococcus aureus; J96.01 Acute respiratory failure with hypoxia; G93.41 Metabolic encephalopathy; J69.0 Pneumonitis due to inhalation of food and vomit; R65.21 Severe sepsis with septic shock; J15.212 Pneumonia due to Methicillin resistant Staphylococcus aureus; F19.230 Other psychoactive substance dependence with withdrawal, uncomplicated; E87.1 Hypo-osmolality and hyponatremia; L03.114 Cellulitis of left upper limb; M02.30 Reiter's disease, unspecified site; I50.41 Acute combined systolic (congestive) and diastolic (congestive) heart failure; E11.65 Type 2 diabetes mellitus with hyperglycemia; Z79.4 Long term (current) use of insulin; K21.9 Gastro-esophageal reflux disease without esophagitis; E11.621 Type 2 diabetes mellitus with foot ulcer; L97.509 Non-pressure chronic ulcer of other part of unspecified foot with unspecified severity; Z20.828 Contact with and (suspected) exposure to other viral communicable diseases; E87.6 Hypokalemia; E83.39 Other disorders of phosphorus metabolism; B19.20 Unspecified viral hepatitis C without hepatic coma; I35.0 Nonrheumatic aortic (valve) stenosis
CPT/HCPCS: 31500; 31720; 36415; 36556; 36600; 51702; 70450; 71045; 73630; 80048; 80053; 80069; 80202; 81001; 81003; 82270; 82330; 82803; 82947; 83036; 83605; 83735; 83880; 84100; 84132; 84484; 85014; 85018; 85025; 85060; 85379; 85384; 85610; 85730; 87040; 87070; 87077; 87086; 87147; 87186; 87205; 92526; 92610; 93005; 93010; 93971; 94002; 94003; 94640; 94660; 94760; 96374; 97110; 97116; 97162; 97166; 97168; 97530; 97535; 99285-25; A9270; A9270-GY; C1751; C8929; C9113; J0282; J0330; J0360; J1200; J1630; J1644; J1650; J1815; J1940; J2060; J2250; J2370; J2543; J2704; J2930; J3010; J3370; J3411; J3475; J3480; J7030; J7040; J7042; J7050; J7060; J7120; P9046; Q0163; Q9957; U0002